=== PATIENT | female | born 1945 | race Caucasian/White ===

== ENCOUNTER 2018-09-26 09:38 | Outpatient (REF) | payer MEDICARE, BC, SELFPAY ==
[2018-09-26 13:18] LABS: HCT 43.2 % (36.0-46.0); HGB 14.4 g/dL (12.0-15.5); Mean Corp. HGB Concentration 33.3 g/dL (32.0-36.0); Mean Corpuscular Hemoglobin 31.2 pg (27.0-33.0); Mean Corpuscular Volume 93.5 fL (80-95); Mean Platelet Volume 9.2 fL (8.0-11.0); Platelet Count 293 x1000/uL (130-400); RBC 4.62 m/cumm (4.00-5.20); White Blood Cell Count 5.15 k/cumm (4.4-10.8)
[2018-09-26 13:33] LABS: ALT 28 U/L (12-78); AST 19 U/L (15-37); Albumin 4.3 g/dL (3.4-5.0); Alkaline Phosphatase 81 U/L (46-116); Anion Gap 13.3 mmol/L (3-11); BUN 21 mg/dL (7-18); Bilirubin, Total 0.9 mg/dL (0.2-1.0); CO2 26.7 mmol/L (21.0-32.0); CREATININE 0.88 mg/dL (0.55-1.02); Calcium 9.5 mg/dL (8.5-10.1); Chloride 103 mmol/L (98-107); Cholesterol 192 mg/dL (50-200); Glucose 99 mg/dL (70-100); HDL Cholesterol 74 mg/dL (40-60); LDL CHOLESTEROL 95 mg/dL (<100); Potassium 4.3 mmol/L (3.5-5.1); Sodium 143 mmol/L (136-145); Total Protein 7.5 g/dL (6.4-8.2); Triglyceride 109 mg/dL (30-150)
== END 2018-09-26 09:58 ==
LOC: NCHCN 09:38
PROVIDERS: PCP Nurse Practitioner Family; Visit Provider Nurse Practitioner Family
DX: E78.5 Hyperlipidemia, unspecified (principal)
CPT/HCPCS: 80053; 80061; 83721; 85027

== ENCOUNTER 2018-11-04 00:48 | Outpatient (CLI) | payer MEDICARE, BC, SELFPAY ==
--- NOTE | 2018-11-04 14:29 | DI.MAMMO_ITS ---
SYMPTOMS/DIAGNOSIS: SCREENING, Z12.31 MAMMOGRAM: Mammograms were interpreted according to the usual protocol including computer analysis with CAD system, tomosynthesis and C view imaging. The breasts are of moderate density with fairly symmetrical distribution of fibroglandular tissue. No dominant mass or clumped microcalcification is identified in either breast. Current examination is compared with the previous examinations including August 2017 and there has been no gross interval change in appearance in comparison with the previous studies. CONCLUSION: No specific evidence of malignancy at this time. Routine screening examinations are suggested at yearly intervals due to the family history of breast carcinoma. Category 1, breast density category B. MQSA ASSESSMENT OF FINDINGS: Negative. Category 1. Patient will receive a letter notifying them of these results. BI-RADS category B. There are scattered areas of fibroglandular density.
== END 2018-11-04 01:08 ==
PROVIDERS: PCP Nurse Practitioner Family; Visit Provider Nurse Practitioner Family
DX: Z12.31 Encounter for screening mammogram for malignant neoplasm of breast (principal); Z80.3 Family history of malignant neoplasm of breast
CPT/HCPCS: 77063; 77067

== ENCOUNTER 2019-10-28 16:36 | Outpatient (REF) | payer MEDICARE, BC, SELFPAY ==
[2019-10-28 19:33] LABS: Bilirubin Negative (Negative); Blood Moderate (Negative); Clarity Clear (Clear); Glucose Negative (Negative); Ketones Negative (Negative); Leukocyte Esterase Moderate (Negative); Nitrite Negative (Negative); Urobilinogen 0.2 EU/dL (Up TO 0.2)
[2019-10-28 20:18] LABS: Bacteria Moderate HPF (Negative); Casts Negative LPF (Negative); Crystals Negative HPF (Negative); Epithelial Cells Few HPF (Negative); Mucus Negative (Negative); Other Cells Few Renal (Negative); WBC 20-50 HPF (0-5)
[2019-10-28 20:19] LABS: C & S Indicated? C&S Done As Ordered
== END 2019-10-28 16:56 ==
LOC: NCHCN 16:36
PROVIDERS: PCP Nurse Practitioner Family; Visit Provider Family Medicine
DX: R39.9 Unspecified symptoms and signs involving the genitourinary system (principal)
CPT/HCPCS: 87077; 81003; 81015; 87086; 87186

== ENCOUNTER 2020-03-16 01:00 | Outpatient (CLI) | payer MEDICARE, BC, SELFPAY ==
--- NOTE | 2020-03-16 11:20 | DI.MAMMO_ITS ---
EXAM: MG MAMMO SCREENING CLINICAL HISTORY: SCREENING,Z12.39 TECHNIQUE: Bilateral full field digital CC and MLO mammographic images were obtained with 3D tomosyn thesis and utilizing computer aided detection (CAD). COMPARISON: Available for comparison. FINDINGS: Masses/Architectural Distortion: None seen. Microcalcifications: No suspicious pleomorphic-type are seen. Skin Thickening/Nipple Retraction: None. IMPRESSION: 1. No significant interval change with no specific features of malignancy noted. 2. Unless there is more urgent need, screening mammography is recommended, as per [employer] [employer] guidelines. BI-RADS Category 1 - Negative Breast Density - Category B - Scattered areas of fibroglandular density A negative radiographic report should not delay biopsy if a dominant or clinically suspicious mass is present. Up to ten percent of cancers are not identified on mammography. A negative report may reinforce clinical impression. Adenosis and dense breasts may obscure an underlying neoplasm. False positive reports average 6 to 10%. Patient will receive a letter notifying them of these results.
== END 2020-03-16 01:20 ==
PROVIDERS: PCP Nurse Practitioner Family; Visit Provider Nurse Practitioner Family
DX: Z12.31 Encounter for screening mammogram for malignant neoplasm of breast (principal)
CPT/HCPCS: 77063; 77067

== ENCOUNTER 2021-03-20 00:12 | Outpatient (CLI) | payer MEDICARE, BC, SELFPAY ==
--- NOTE | 2021-03-20 10:19 | DI.MAMMO_ITS ---
Exam(s) MAMMO SCREENING EXAM: MAMMO SCREENING CLINICAL HISTORY: SCREENING FOR BREAST CANCER Z12.39 TECHNIQUE: Mammograms were interpreted according to the usual protocol including computer analysis w [employer] CAD system, tomosynthesis and C-view imaging. COMPARISON: 2011 through 2019 FINDINGS: The breasts are composed of scattered fibroglandular densities, Breast Density category B. No suspicious masses or suspicious microcalcifications are seen. No skin thickening or abnormal axillary lymph nodes are seen. There has been no significant change from prior exams. IMPRESSION: BI-RADS Category 1, Negative mammogram Yearly screening mammography is recommended. Breast Density - Category B, scattered fibroglandular densities. A negative radiographic report should not delay biopsy if a dominant or clinically suspicious mass is present. Up to ten percent of cancers are not identified on mammography. A negative report may reinforce clinical impression. Adenosis and dense breasts may obscure an underlying neoplasm. False positive reports average 6 to 10%. Patient will receive a letter notifying them of these results.
== END 2021-03-20 00:32 ==
PROVIDERS: PCP Nurse Practitioner Family; Visit Provider Nurse Practitioner Family
DX: Z12.31 Encounter for screening mammogram for malignant neoplasm of breast (principal)
CPT/HCPCS: 77063; 77067

== ENCOUNTER → 2022-03-27 01:53 | Outpatient (CLI) | payer MEDICARE, BC, SELFPAY ==
--- NOTE | 2022-03-27 | DI.MAMMO_ITS ---
Exam(s) MAMMO SCREENING EXAM: MAMMO SCREENING CLINICAL HISTORY: SCREENING FOR BREAST CANCER Z12.39 TECHNIQUE: Bilateral full field digital CC and MLO mammographic images were obtained with 3D tomosyn thesis and utilizing computer aided detection (CAD). COMPARISON: Available for comparison. FINDINGS: Masses/Architectural Distortion: None seen. Microcalcifications: No suspicious pleomorphic-type are seen. Skin Thickening/Nipple Retraction: None. IMPRESSION: 1. No significant interval change with no specific features of malignancy noted. 2. Unless there is more urgent need, screening mammography is recommended, as per [place] [employer] guidelines. BI-RADS Category 1 - Negative Breast Density - Category B - Scattered areas of fibroglandular density Breast density category C or D implies that the patient has dense breast tissue. Dense breast tissue is very common and is not abnormal but dense breast tissue can make it harder to find cancer on a ma mmogram. Also, dense breast tissue may increase their breast cancer risk. This information about the result of the mammogram report was provided to the patient to raise their awareness. Use this report when you speak with the patient about their risks for breast cancer, which includes their family hist ory. At that time, you may recommend for more screening tests (Ultrasound or MRI) as they might be us eful based on their risk. A negative radiographic report should not delay biopsy if a dominant or clinically suspicious mass is present. Up to ten percent of cancers are not identified on mammography. A negative report may reinforce clinical impression. Adenosis and dense breasts may obscure an underlying neoplasm. False positive reports average 6 to 10%. Patient will receive a letter notifying them of these results.
== END ==
PROVIDERS: Visit Provider Nurse Practitioner Family
DX: Z12.31 Encounter for screening mammogram for malignant neoplasm of breast (principal)
CPT/HCPCS: 77063; 77067

== ENCOUNTER → 2023-05-23 01:44 | Outpatient (CLI) | payer MEDICARE, BC, SELFPAY ==
--- NOTE | 2023-05-23 | DI.MAMMO_ITS ---
Exam(s) MAMMO SCREENING EXAM: MAMMO SCREENING CLINICAL HISTORY: SCREENING,Z12.31 TECHNIQUE: Bilateral full field digital CC and MLO mammographic images were obtained with 3D tomosyn thesis and utilizing computer aided detection (CAD). COMPARISON: Available for comparison. FINDINGS: Masses/Architectural Distortion: None seen. Microcalcifications: No suspicious pleomorphic-type are seen. Skin Thickening/Nipple Retraction: None. IMPRESSION: 1. No significant interval change with no specific features of malignancy noted. 2. Unless there is more urgent need, screening mammography is recommended, as per [place] [employer] guidelines. BI-RADS Category 1 - Negative Breast Density - Category B - Scattered areas of fibroglandular density Breast density category C or D implies that the patient has dense breast tissue. Dense breast tissue is very common and is not abnormal but dense breast tissue can make it harder to find cancer on a ma mmogram. Also, dense breast tissue may increase their breast cancer risk. This information about the result of the mammogram report was provided to the patient to raise their awareness. Use this report when you speak with the patient about their risks for breast cancer, which includes their family hist ory. At that time, you may recommend for more screening tests (Ultrasound or MRI) as they might be us eful based on their risk. A negative radiographic report should not delay biopsy if a dominant or clinically suspicious mass is present. Up to ten percent of cancers are not identified on mammography. A negative report may reinforce clinical impression. Adenosis and dense breasts may obscure an underlying neoplasm. False positive reports average 6 to 10%. Patient will receive a letter notifying them of these results.
== END ==
PROVIDERS: PCP Nurse Practitioner Family; Visit Provider Nurse Practitioner Family
DX: Z12.31 Encounter for screening mammogram for malignant neoplasm of breast (principal)
CPT/HCPCS: 77063; 77067

== ENCOUNTER 2024-05-13 12:45 | Outpatient (CLI) | payer MEDICARE, BC, SELFPAY ==
--- NOTE | 2024-05-13 | DI.RAD_ITS ---
Exam(s) XR CHEST 2V PA LATERAL EXAM: XR CHEST 2V PA LATERAL CLINICAL HISTORY: R06.09 Dyspnea TECHNIQUE: 2D digital imaging was performed. Two views. COMPARISON: No exams were available for comparison FINDINGS: HEART: Normal size. Aorta: Not dilated. PULMONARY VASCULATURE: Normal. MEDIASTINUM: small hiatal hernia. LUNGS: Clear. PLEURAL SPACE: No pleural effusion or pneumothorax. BONE:Unremarkable for age. SOFT TISSUES: Unremarkable. IMPRESSION: No acute abnormality. DATA REPOSITORY: RADIATION DOSE DELIVERED:
--- OUTSIDE RECORDS SUMMARY | 2024-05-13 12:49 | XMS_ITS | Encounter Summary ---
Author Organization [facility] Address [facility] [address] Care Team Providers Care Adult Health Clinical Nurse Specialist Name Role Phone Sigrid Snyder APRN Primary Care Provider Encounter Details Date Type Department Care Team (Late st Contact Info) Description 06/11/2018 External Results Medical Records [facility] [place] [phone] Provider, Scanning Social History Tobacco Use Types Packs/Day Years Used Date Smoking Tobacco: Never Sex and Gender Information Value Date Recorded Sex Assigned at Not on file Gender Identity Not on file Sexual Orientation Not on file documented as of this encounter Plan of Treatment Not on file documented as of this encounter Procedures Procedure Name Priority Date/Time Associated Diagnosis Comments SURGICAL PATHOLOGY SCAN Routine 06/11/2018 documented in this encounter Results * Scan Doc: Surgical Pathology (06/11/2018) Historical Provider MD STEPHEN MGR SCAN EX T ORDR/RSLT documented in this encounter Visit Diagnoses Not on filedocumented in this encounter Care Teams Adult Health Clinical Nurse Specialist Relationship Specialty Start Date End Date Sigrid Snyder APRN PCP - General Family Medicine 10/25/17 11/26/18 documented as of this encounter
--- OUTSIDE RECORDS SUMMARY | 2024-05-13 12:49 | XMS_ITS | Encounter Summary ---
Author Organization [facility] Address [facility] [place] [address] Care Team Providers Care Shafting Cleaner Name Role Phone Unknown Primary Care Provider Unavailabl e Encounter Details Date Type Department Care Team (Late st Contact Info) Description 10/28/2019 External Results Medical Records [facility] [place] [address] Provider, Scanning Social History Tobacco Use Types [...] Associated Diagnosis Comments SURGICAL PATHOLOGY SCAN Routine 10/28/2019 documented in this encounter Results * Scan Doc: Surgical Pathology (10/28/2019) Historical Provider MD STEPHEN MGR SCAN EX T ORDR/RSLT documented in this encounter Visit Diagnoses Not on filedocumented in this encounter Care Teams Shafting Cleaner Relationship Specialty Start Date End Date Unknown None PCP - General 11/27/18 03/19/21 documented as of this encounter
--- OUTSIDE RECORDS SUMMARY | 2024-05-13 12:49 | XMS_ITS | Encounter Summary ---
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 Keyona Nielsen MD [address] [place] [id number] [facility] Dermatology [address] [place] [address] Referral ID Status Reason Start Date Expiration Date Visits Re quested Visits Authorized [id number] Closed 03/13/2021 03/13/2022 1 1 Encounter Details Date Type Department Care Team (Latest Contact Info) Description 03/20/2021 3:15 PM EST TH Visit (TeleHealth) Dermatology at [facility] [address] [place] [phone] Elliot Luz MD [facility] [address] [facility] [place] [address] 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 Excision discussion, referred by Dr. Jhaveri, Melanoma in-situ 2. 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 female. Established patient to me. Referred by Emilio Sin for consult and treat of aMIS and BCC as noted above. Pathology in chart. Patient has seen Dr. Jhaveri in the past, liked her, wanted to stay with her. Understood. I explained that this was an in-situ lesion, not deep, no need of node biopsy, thus didnot require surgical oncology. Hospital is trying to be more efficient with surgical time. She understood. BCC on opposite shoulder was treated at the time of the visit. I discussed this entire case with Dr. Nielsen. She is clear on our process and melanoma program, --- discussed the navigatorJyotsna with her as well. Medications: reviewed All: reviewed Review of Systems: Feels well, no fatigue, no weight loss, no other skin concerns --- overall healthy Current Outpatient Medications on File Prior to Visit Medication Sig Dispense Refill ??? atorvastatin (LIPITOR) 20 mg Tablet ??? omeprazole (PRILOSEC) 20 mg Capsule, Delayed Release(E.C.) ??? Uhkb-Alaw-CUE#1-Vit C-Sherwin-Bor [id number] mg Tablet Take by mouth. ??? aspirin 81 mg Tablet, Delayed Release (E.C.) Take 81 mg by mouth daily. No current facility-administered medications on file prior to visit. Examination: Per patient, no photos. Assessment/Diagnosis: 1. MIS of left shoulder 2. BCC of right shoulder, scar Treatment/Plan: Discussion - Spent over half of this visit discussing pathophysiology and the diagnosis, and counselling this patient on treatment options, expectations and follow-up plan. Specifically discussed: 1. Treatment options for both MIS and BCC as noted above - Patient verbally consents to this telephone visit and understands that this visit may be billed similar to a clinic office visit. - I provided care to the patient via telephone/video call today. Follow up: In surgery clinic with Dr. Luz March 31 I am documenting this encounter acting as the scribe for and in the presence of Sae Arguello LPN I performed the above scribed service and agree with the accuracy of the documentation in this encounter, MD Arsh Scott M.D. 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
--- OUTSIDE RECORDS SUMMARY | 2024-05-13 12:49 | XMS_ITS | Encounter Summary ---
Author Organization [facility] Address [facility] [place] [address] Care Team Providers Care Security Operations Analyst Name Role Phone Unknown Primary Care Provider Unavailabl e Encounter Details Date Type Department Care Team (Latest Contact Info) Description 10/03/2017 6:43 PM EDT - 10/03/2017 11:59 PM EDT Hospital Encounter Laboratory [facility] [place] [phone] Discharge Disposition: Home Social History Tobacco Use Types Packs/Day Years Used Date Smoking Tobacco: Never Assessed Sex and Gender Information Value Date Recorded Sex Assigned at Not on file Gender Identity Not on file Sexual Orientation Not on file documented as of this encounter Medications at Time of Discharge Medication Sig Dispensed Refills Start Date End Date omeprazole (PRILOSEC) 20 mg Capsule, Delayed Release(E.C.) 08/07/2017 documented as of this encounter Plan of Treatment Not on file documented as of this encounter Procedures Procedure Name Priority Date/Time Associated Diagnosis Comments SURGICAL PATHOLOGY REPORT Routine 10/03/2017 1:51 PM EDT documented in this encounter Results * Surgical Pathology Report (10/03/2017 1:51 PM EDT) Final Diagnosis [id number] ? Location: [facility] The signing pathologist has (i) examined the relevant preparation(s) for the specimen(s) and (ii) rendered or confirmed the diagnosis(es). . ?Surgical Pathology DIAGNOSIS Skin, right anterior thigh, shave ?? biopsy: ?? Malignant melanoma (see template and discussion) Specimen ? Procedure: ??Biopsy, shave Tumor ? Tumor Site: ??Skin of lower limb and hip - right anterior thigh ? Histologic Type: ?? Superficial spreading melanoma ? Maximum Tumor (Breslow) Thickness: ?0.4 Millimeters (mm) ? Tumor Extent ?Anatomic (Britton) Level: ?? II (melanoma present in but does not fill and ? expand papillary dermis) ?Ulceration: ??Not identified ? Accessory Findings ?Mitotic Rate: ?? None identified ?Lymphovascular Invasion: ?? Not identified ?Neurotropism: ?? Not identified ?Tumor Regression: ?? Not identified ? Margins ?Peripheral Margins: ?? Uninvolved by invasive melanoma ? Status of Melanoma In Situ Involvement at Peripheral Margins: ? Involved ?by melanoma in situ ?Deep Margin: ??Uninvolved by invasive melanoma ? Pathologic Stage Classification (pTNM, AJCC 8th Edition) ?Primary Tumor (pT): ?? pT1a Tumor Block(s): ?? A1 2016 AJCC 8th Edition CAP Annual Release Electronically signed by: ??Jordi KAN, PhD, Kenneth Verified: ??10/08/2017 ?Dermatopathologist Performed at: ??-[facility] Dept. of Pathology, [place], [place] DISCUSSION The biopsy shows predominantly ?? melanoma in situ, with focal invasion to the depth of 0.4 mm. As this is a smaller biopsy of a reported larger lesion, correlation with the excision specimen is recommended for final staging. This case was also reviewed by an additional intradepartmental dermatopathologist for consensus diagnosis. ADDITIONAL STUDIES Immunohistochemistry Studies: Formalin-fixed, paraffin-embedded tissue sections are studied using the polymer technique with appropriate positive and negative controls. ?These IHC studies provide the pathologist with adjunctive diagnostic information. Antibody specificity has been verified by testing antibodies on a series of in-house tissues with known immunohistochemical performance characteristics. The clinical interpretation of any antibody positive staining or its absence is evaluated within the context of clinical presentation, morphology, histopathological criteria and other diagnostic tests. . ADDITIONAL STUDIES Block ? Antibody ? Result (Positive/Negative) A1 ? Melan-A AEC ?Highlights melanocytes CLINICAL INFORMATION Specimen Submitted: A - Skin, R anterior thigh Clinical History and Diagnosis: 1.6 cm pigmented macule/MIS? Referring Identifier: ?? (not provided) SPECIMEN PROCESSING A - Labeled/Fixative: R thigh, formalin. Quantity/Size: Single, 0.9 x 0.5 x 0.1 cm. Tissue Description: Shave of mottled skin. Sections/Processing: Inked and quadrasected. (T1) ??atilio 10/08/2017 4:58 PM EDT [facility] SPECIMEN FROM SKIN / Unknown 10/03/2017 1:51 PM EDT 10/03/2017 1:51 PM EDT Keyona Nielsen MD PATHOLOGY/CYTOLOGY O [facility] [place] [address] documented in this encounter Visit Diagnoses Not on filedocumented in this encounter Care Teams Security Operations Analyst Relationship Specialty Start Date End Date Unknown None PCP - General 03/21/10 10/24/17 documented as of this encounter
--- OUTSIDE RECORDS SUMMARY | 2024-05-13 12:49 | XMS_ITS | Encounter Summary ---
Author Organization [facility] Address [facility] [place] [address] Care Team Providers Care Honey Processor Name Role Phone Unknown Primary Care Provider Unavailabl e Encounter Details Date Type Department Care Team (Latest Contact Info) Description 02/16/2021 9:01 PM EDT - 02/16/2021 11:59 PM EDT [place] [address] Discharge Disposition: Home Social History Tobacco Use Types Packs/Day Years Used Date Smoking Tobacco: Never Sex and Gender Information Value Date Recorded Sex Assigned at Not on file Gender Identity Not on file Sexual Orientation Not on file documented as of this encounter Medications at Time of Discharge Medication Sig Dispensed Refills Start Date End Date atorvastatin (LIPITOR) 20 mg Tablet 10/18/2017 omeprazole (PRILOSEC) 20 mg Capsule, Delayed Release(E.C.) 08/07/2017 Nivs-Vtjw-QZM#1-Vit C-Sherwin-Bor [id number] mg Tablet Take by mouth. aspirin 81 mg Tablet, Delayed Release (E.C.) Take 81 mg by mouth daily. documented as of this encounter Plan of Treatment Not on file documented as of this encounter Procedures Procedure Name Priority Date/Time Associated Diagnosis Comments SURGICAL PATHOLOGY REPORT Routine 02/16/2021 9:40 AM EDT documented in this encounter Results * Surgical Pathology Report (02/16/2021 9:40 AM EDT) Final Diagnosis [id number] ? Location: [facility] The signing pathologist has (i) examined the relevant preparation(s) for the specimen(s) and (ii) rendered or confirmed the diagnosis(es). . ?Surgical Pathology DIAGNOSIS A - Left anterior shoulder, skin shave biopsy: - ??Melanoma in situ, present at the peripheral specimen edge (see Discussion) B - Right anterior shoulder, shave biopsy: - ??Basal cell carcinoma, nodular pattern, transected at the base Electronically signed by: ?Jordi KAN, PhD, [facility] Verified: ??02/22/2021 9:24 ?? Dermatopathologist Performed at: ??-[facility] Dept. of Pathology, [place], [place] ADDITIONAL STUDIES A(Left anterior shoulder) - As this is a partial biopsy of a reported larger lesion, correlation with the excision specimen is necessary for final staging. SPECIMEN(S) SUBMITTED A - left anterior shoulder, shave B - right anterior shoulder, shave Referring Identifier: ?(not provided) CLINICAL INFORMATION A - 2.5 cm pigmented macule B - 3 mm pearly nodule SPECIMEN PROCESSING A - Labeled/Fixative: Left anterior shoulder, formalin. Quantity/Size: ??Single, 0.8 x 0.5 x 0.1 cm. Tissue Description: Rodrigues and brown scaly irregularly pigmented skin shave. Sections/Processing: Inked, trisected and entirely submitted in 1 cassette labeled A1. B - Labeled/Fixative: Right anterior shoulder, formalin. Quantity/Size: ??Single, 0.5 x 0.5 x 0.1 cm. Tissue Description: Rodrigues-white scaly papule. Sections/Processing: Inked, bisected and entirely submitted in 1 cassette labeled B1. ??MLL 02/22/2021 9:24 AM EDT [facility] SPECIMEN FROM SKIN / Unknown 02/16/2021 9:40 AM EDT 02/16/2021 9:40 AM EDT SPECIMEN FROM SKIN / Unknown 02/16/2021 9:40 AM EDT 02/16/2021 9:40 AM EDT Keyona Nielsen MD PATHOLOGY/CYTOLOGY O RDERABLES Performing Organization Address City/State/[facility] [place] [address] documented in this encounter Visit Diagnoses Not on filedocumented in this encounter Care Teams Honey Processor Relationship Specialty Start Date End Date Unknown None PCP - General 11/27/18 03/19/21 documented as of this encounter
--- OUTSIDE RECORDS SUMMARY | 2024-05-13 12:49 | XMS_ITS | Encounter Summary ---
Author Organization [facility] Address [facility] [place] [address] Care Team Providers Care Lead Driver Name Role Phone Unknown Primary Care Provider Unavailabl e Encounter Details Date Type Department Care Team (Latest Contact Info) Description 10/27/2019 8:10 PM EDT - 10/27/2019 11:59 PM EDT Hospital [place] [phone] Discharge Disposition: Home Social History Tobacco Use [...] (PRILOSEC) 20 mg Capsule, Delayed Release(E.C.) 08/07/2017 Dydj-Tgmt-TMZ#1-Vit C-Sherwin-Bor 712-359-91-0.5 mg Tablet Take by mouth. aspirin 81 mg Tablet, Delayed Release (E.C.) Take 81 mg by mouth daily. documented as of this encounter Plan of Treatment Not on file documented as of this encounter Procedures Procedure Name Priority Date/Time Associated Diagnosis Comments SURGICAL PATHOLOGY REPORT Routine 10/27/2019 11:25 AM EDT documented in this encounter Results * Surgical Pathology Report (10/27/2019 11:25 AM EDT) Final Diagnosis [id number] ? Location: OPW The signing pathologist has (i) examined the relevant preparation(s) for the specimen(s) and (ii) rendered or confirmed the diagnosis(es). . ?Surgical Pathology DIAGNOSIS Left upper back, skin shave biopsy: - Lentigo and pigmented actinic keratosis with post-inflammatory changes ? (see discussion) Electronically signed by: ??Reji Mcbride MD Verified: ??11/05/2019 ?Dermatopathologist Performed at: ??-[facility] [place] [place] Dept. of Pathology, [place], [place] DISCUSSION No discrete melanocytic proliferation is identified. Squamous dysplasia (actinic keratosis) focally approaches full epidermal thickness, but only at the very center of the specimen and not around the specimen edges. ADDITIONAL STUDIES Multiple step-leveled sections are reviewed. MelanA immunohistochemistry highlights the melanocytic proliferation and assists in margination. SPECIMEN(S) SUBMITTED A - L upper back, shave (1) Referring Identifier: ?? (not provided) CLINICAL INFORMATION 3 mm irregularly pigmented macule SPECIMEN PROCESSING A - Labeled/Fixative: Left upper back, formalin. Quantity/Size: ??Single, 0.7 x 0.6 cm. Tissue Description: Rodrigues-pink skin shave notable for a 0.4 x 0.3 cm irregularly pigmented macule. Sections/Processing: Inked, trisected and entirely submitted in 2 cassettes as follows: ?A1: ??Tips ?A2: ??Body ??ajw NOTE: Per histology, tips embedded in A1 and A3; body in A2. 11/05/2019 7:47 AM EDT [facility] SPECIMEN FROM SKIN / Unknown 10/27/2019 11:25 AM EDT 10/27/2019 11:25 AM EDT Keyona Nielsen MD PATHOLOGY/CYTOLOGY O RDERAARVIND [facility] [place] [address] documented in this encounter Visit Diagnoses Not on filedocumented in this encounter Care Teams Lead Driver Relationship Specialty Start Date End Date Unknown None PCP - General 11/27/18 03/19/21 documented as of this encounter
--- OUTSIDE RECORDS SUMMARY | 2024-05-13 12:49 | XMS_ITS | Encounter Summary ---
Author Organization [facility] Address [facility] [place] [address] Care Team Providers Care Cold Roller Name Role Phone Sigrid Snyder APRN Primary Care Provider [phone] Reason for Visit * Consultation (Routine) - Closed Specialty Diagnoses / Procedures Referred By Weston holguin Referred To Contact General Surgery Diagnoses Malignant melanoma of thigh, right Malig Melanoma RT antrior thigh Procedures Consult & Treat Keyona Nielsen MD [address] [place] [address] [facility] Surgery [address] [place] [address] Referral ID Status Reason Start Date Expiration Date Visits Re quested Visits Authorized [id number] Closed 10/15/2017 10/15/2018 1 1 Encounter Details Date Type Department Care Team ([facility] st Contact Info) Description 10/25/2017 10:30 AM EDT Office [place] [phone] Norma Jhaveri MD Melanoma of lower limb, right Social History Tobacco Use Types Packs/Day Years Used Date Smoking Tobacco: Never Sex and Gender Information Value Date Recorded Sex Assigned at Not on file Gender Identity Not on file Sexual Orientation Not on file documented as of this encounter Last Filed Vital Signs Vital Sign Reading Time Taken Comments Blood Pressure 161/82 10/25/2017 10:21 AM EDT Pulse 79 10/25/2017 10:21 AM EDT Temperature - - Respiratory Rate - - Oxygen Saturation 98% 10/25/2017 10:21 AM EDT Inhaled Oxygen Concentration - - Weight 83.5 kg (184 lb) 10/25/2017 10:21 AM EDT Height 162.6 cm (5' 4) 10/25/2017 10:21 AM EDT Body Mass Index 31.58 10/25/2017 10:21 AM EDT documented in this encounter Progress Notes * Norma Jhaveri MD - 10/25/2017 10:30 AM EDT SURGICAL ONCOLOGY NEW PATIENT NOTE Cc: New diagnosis of melanoma Dori Healy is a 71 year old woman referred for definitive management of a new diagnosis of melanoma. She indicates that she has had atypical nevus of the right anterior thigh for several years now. Her reported thinking that the lesion changed in character. She was seeing Dr. Nielsen for routine evaluation and a biopsy was performed. This was described as a 1.6 cm irregularly shaped and irregularly pigmented macule of the right anterior thigh. A partial shave biopsy was performed in the office. Concomitantly, cryosurgery was performed for 5 separate actinic keratoses lesions. Notation is that a full body skin examination was done and otherwise unremarkable. Pathology demonstrated: DIAGNOSIS Skin, right anterior thigh, shave ?? biopsy: ?Malignant melanoma (see template and discussion) Specimen ?Procedure: ??Biopsy, shave Tumor ?Tumor Site: ??Skin of lower limb and hip - right anterior thigh ?Histologic Type: ?? Superficial spreading melanoma ?Maximum Tumor (Breslow) Thickness: ?0.4 Millimeters (mm) ?Tumor Extent ? Anatomic (Britton) Level: ?? II (melanoma present in but does not fill and ?expand papillary dermis) ? Ulceration: ??Not identified ?Accessory Findings ? Mitotic Rate: ?? None identified ? Lymphovascular Invasion: ?? Not identified ? Neurotropism: ?? Not identified ? Tumor Regression: ?? Not identified ?Margins ? Peripheral Margins: ?? Uninvolved by invasive melanoma ?Status of Melanoma In Situ Involvement at Peripheral Margins: ? Involved ? by melanoma in situ ? Deep Margin: ??Uninvolved by invasive melanoma ?Pathologic Stage Classification (pTNM, AJCC 8th Edition) ? Primary Tumor (pT): ?? pT1a As result of these findings, the patient is referred for definitive surgical management. 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 Review of systems. No current constitutional/systemic symptoms. No fevers, chills. No headaches. Nobony aches, changes in bowel habits, weight change. Never smoker. Medications include Lipitor and Prilosec. No anticoagulation. She has a possible allergy to codeine Examination. Afebrile. BMI 31.6. Sclera clear, anicteric Chest clear to auscultation Healing shave biopsy site along the right anterior thigh. There is an unsampled pigmented nevus around the site of the lesion. No obvious gross residual disease. No right inguinal or popliteal adenopathy. No right lower extremity lymphedema, mild edema. Pathology reviewed as above. No other labs for review today. Impression. 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 There is notation of melanoma in situ atthe peripheral margin, likely involving the adjacent unsampled pigmented nevus. I made recommendations for wide excision to clear the lesion. Given the current melanoma profile, there is no indication for sentinel lymph node biopsy. This could change if she was discovered to have residual disease that represented a thicker melanoma and we described this for her. There is no indication for staging workup (imaging). Risks of the procedure were reviewed, including, but not limited to, bleeding, infection, inabilityto completely resect disease, recurrence in spite of resection, need for additional procedures, lymphocele/seroma/hematoma, lymphedema, wound dehiscence, and other complications related to anesthesiaor being in the hospital. Questions were answered. Informed consent was obtained and placed in the chart. We will schedule the procedure. Given the nature of the operation we discussed a local anesthetic which she would like to consider. documented in this encounter Plan of Treatment Not on file documented as of this encounter Visit Diagnoses Diagnosis Melanoma of lower limb, right documented in this encounter Care Teams Cold Roller Relationship Specialty Start Date End Date Sigrid Snyder APRN PCP - General Family Medicine 10/25/17 11/26/18 documented as of this encounter
--- OUTSIDE RECORDS SUMMARY | 2024-05-13 12:49 | XMS_ITS | Encounter Summary ---
Author Organization [facility] Address [facility] [place] [address] Care Team Providers Care Rib Matcher And Fitter Name Role Phone Unknown Primary Care Provider Unavailabl e Encounter Details Date Type Department Care Team (Latest Contact Info) Description 06/11/2011 3:19 PM EST - 06/11/2011 11:59 PM EST [place] [address] Keyona Lindsey MD [address] [place] [id number] Discharge Disposition: Home Social History Tobacco Use [...] Associated Diagnosis Comments SURGICAL PATHOLOGY REPORT Routine 06/11/2011 3:28 PM EST documented in this encounter Results * SURGICAL PATHOLOGY REPORT (06/11/2011 3:28 PM EST) Surgical Pathology Report ? [facility] ? Provider: ?? KEYONA LINDSEY ?Pt. Name: ?? ROBIN YOUNG ? Acc #: ?[id number] ? Pt. ? Col Date: ?? 06/11/2011 ? /Sex: ?1945,(65 years),Female ? Rec Date: ?? 06/12/2011 ? LOC: ?[facility] ? SURGICAL PATHOLOGY ? ---Pathologic Diagnosis--- ? Skin, right upper arm, shave biopsy: ? 1. Solar lentigo with melanocytic atypia, involving peripheral biopsy ?edges, (see Comment). ? 2. Actinic keratosis. ? CR-0 ? 06/12/11 ? AJE ? 06/20/11 Verified by: ? Marily Quezada MD ? Dermatopathologist ? (Electronic Signature) ? The attending pathologist whose signature appears on this report has ? reviewed all diagnostic slides and has edited the gross and/or ? microscopic portion of the report in rendering the final pathologic ? diagnosis. ? ---Comment--- ? Multiple additional sections were examined, and there are variable findings ? across the biopsy. ??The predominant lesions are solar lentigo and actinic ? keratosis. ??Within the epidermis, particularly in the solar lentigo, there ? are increased numbers of junctional melanocytes, some of which are enlarged ? and have cytologic atypia, but do not form confluent growth, and are not ? diagnostic of melanoma in situ. ??The significance is uncertain. ??There can ? be increased melanocytes with atypia in the setting of actinically damaged ? skin. ??Clinical correlation and follow-up are recommended with additional ? sampling if clinically indicated. ? Drs. Luis Lyons, Randolph Sanchez and Kenneth Bacon also examined the case ? and concur with the interpretation. ? ---Microscopic Description--- ? Slides reviewed, microscopic description not recorded. ? Immunohistochemistry Studies: ? Formalin-fixed, paraffin-embedded tissue sections are studied using the B- ? SA system technique with appropriate positive and negative controls. ??These ? IHC studies provide the pathologist with adjunctive diagnostic information. ? Antibody specificity has been verified by testing antibodies on a series of ? in-house tissues with known immunohistochemical performance ? characteristics. The ? [facility] ? Provider: ?? KEYONA LINDSEY ?Pt. Name: ?? ROBIN YOUNG ? Acc #: ?[id number] ? Pt. ? Col Date: ?? 06/11/2011 ? /Sex: ?1945,(65 years),Female ? Rec Date: ?? 06/12/2011 ? LOC: ?[facility]W ? SURGICAL PATHOLOGY ? clinical interpretation of any antibody positive staining or its absence is ? evaluated within the context of clinical presentation, morphology, ? histopathological criteria and other diagnostic tests. ? Block ?Antibody ?Result (Positive/Negative) ? A1 ?MART-1 ? positive, increased junctional melanocytes. ? ---Gross Description--- ? Labeled/Fixative: ? R upper arm, formalin. ? Qty/Size/Weight: ?Single shave, 1.2 x 1.1 x 0.1 cm. ? Tissue Description: ?? White skin with a 1.1-cm, dark brown macule. ? Sections/Processing: ??The specimen is quadrisected. ??(T1) aje/SNS ? ---Clinical Information--- ? Specimen Submitted: ? A - R upper arm, shave ? Clinical History/Diagnosis: ? 1-cm irregular, dark brown macule / lentigo R/O MM ? Keyona Lindsey MD ? Dermatology ? [address] , [address] ? [place], [place] ??[address] ? Phone - ? FAX - ALEXSANDER RODRIGUEZIUM 06/11/2011 3:28 PM EST Keyona Lindsey MD PATHOLOGY/CYTOLOGY O RDERABLES ALEXSANDER REBOLLARENNIUM documented in this encounter Visit Diagnoses Not on filedocumented in this encounter Care Teams Rib Matcher And Fitter Relationship Specialty Start Date End Date Unknown None PCP - General 03/21/10 10/24/17 documented as of this encounter
--- OUTSIDE RECORDS SUMMARY | 2024-05-13 12:49 | XMS_ITS | Clinical Summary ---
Author Organization [facility] Address [facility] [place] [address] Care Team Providers Care Clinical Genetics Laboratory Chief Name Role Phone Kristen Castaneda CORINNE Primary Care Provider [phone] Allergies Active Allergy Reactions Criticality Noted Date Comments Codeine Nausea And Vomiting 10/25/2017 Medications Medication Sig Dispensed Refills Start Date End Date Status atorvastatin (LIPITOR) 20 mg Tablet 10/18/2017 Active omeprazole (PRILOSEC) 20 mg Capsule, Delayed Release(E.C.) 08/07/2017 Active Svrm-Zkwa-IDM#1-Vit C-Sherwin-Bor [id number] mg Tablet Take by mouth. Active aspirin 81 mg Tablet, Delayed Release (E.C.) Take 81 mg by mouth daily. Active Social History Tobacco Use Types Packs/Day Years Used Date Smoking Tobacco: Never Sex and Gender Information Value Date Recorded Sex Assigned at Not on file Gender Identity Not on file Sexual Orientation Not on file Last Filed Vital Signs Vital Sign Reading Time Taken Comments Blood Pressure 126/64 11/08/2017 2:29 PM EDT Pulse 79 10/25/2017 10:21 AM EDT Temperature - - Respiratory Rate 16 11/08/2017 2:29 PM EDT Oxygen Saturation 96% 11/08/2017 2:29 PM EDT Inhaled Oxygen Concentration - - Weight 83.5 kg (184 lb) 10/25/2017 10:21 AM EDT Height 162.6 cm (5' 4) 10/25/2017 10:21 AM EDT Body Mass Index 31.58 10/25/2017 10:21 AM EDT Plan of Treatment Health Maintenance Due Date Last Done Comments Hepatitis C Screening 1963 Tetanus/Diphtheria/Pertussis Vaccines (1 - Tdap) 11/09 Pneumoccocal Vaccine: 50+ (1 of 1 - PCV) 1996 Zoster vaccine (1 of 2) 1996 Advance Directive 2001 Bone Density Scan 11/10/2011 RSV Vaccine (1 - 1-dose 75+ series) 2021 Covid-19 Vaccine (1 - 2023- season) 2023 Influenza (Flu) vaccine (1 o f 1 - Influenza standard series) 12/29/2023 Care Teams Clinical Genetics Laboratory Chief Relationship Specialty Start Date End Date Kristen Castaneda APRN [facility] [address] [place], [place] [address] PCP - General Family Medicine 03/31/21
--- OUTSIDE RECORDS SUMMARY | 2024-05-13 12:49 | XMS_ITS | Encounter Summary ---
Author Organization [facility] Address [address] [place] [address] Care Team Providers Care Corrosion Control Engineer Name Role Phone Unavailable Primary Care Provider Unavailabl e Encounter Details Date Type Department Care Team (Late st Contact Info) Description 07/03/1999 Results Only [facility] [address] [place] [address] MD [address] [place] [phone] Social History Tobacco Use Types Packs/Day Years Used Date Smoking Tobacco: Never Assessed Comments Unknown Sex and Gender Information Value Date Recorded Sex Assigned at Not on file Legal Sex Female 18:23 EST Gender Identity Not on file Sexual Orientation Not on file documented as of this encounter Plan of Treatment Not on file documented as of this encounter Procedures Procedure Name Priority Date/Time Associated Diagnosis Comments CYTOPATHOLOGY Routine 07/03/1999 15:52 EST CYTOPATHOLOGY Routine 07/03/1999 7:29 EST documented in this encounter Results * CYTOPATHOLOGY (07/03/1999 15:52 EST) Pathology Report: CYTOPATHOLOGY REPORT Reports generated via electronic interface contain original data; however they are lacking the format of the original report. Caution should be taken when reading/interpreti ng unformatted reports. Name: ? ROBIN YOUNG ? Accession #: ? [id number] : ? 1945 (Age: 53) ??F ?Collect Date: ? 07/03/1999 Location: ?Receive Date: ? 07/03/1999 Provider: ? ANTONIO LANE MD Copy to: ?ANTONIO LANE MD ? CYTOLOGIC DIAGNOSIS: CYTOLOGIC DIAGNOSIS ? Urinary tract cytologic material, voided: ? No malignant cells identified. ??See comment. ? SmartSynch Archived Tests - Final Diagnosis Text Field: Clinical History : ;UTI, hematuria. Gross Description : 1 tube of Cytolyt, received. ? COMMENT: COMMENT ? Reactive urothelial cells are present in a background of marked ? acute inflammation, consistent with urinary tract infection. Document reviewed and electronically signed by: ? Conversion for IZZY BYERS Report Date: ??07/05/1999 00:00 By the signature above, the attending physician certifies that he/she has personally conducted a gross and/or microscopic examination of the described specimens and rendered or confirmed the above diagnosis. Specimen Type: ? Urinary Tract Cytologic Material, Voided Clinical History: ? Gross Description: ? End of Report PETTY VELASQUEZ 07/03/1999 15:5 2 EST 07/03/1999 15:[address] MD PATHOLOGY ORDERABLES Final Resul t PETTY BYRNE [facility] [address] [place] [address] * CYTOPATHOLOGY (07/03/1999 7:29 EST) Pathology Report: CYTOPATHOLOGY REPORT Reports generated via electronic interface contain original data; however they are lacking the format of the original report. Caution should be taken when reading/interpreti ng unformatted reports. Name: ? HANNAH ROBIN ? Accession #: ? [id number] : ? 1945 (Age: 53) ??F ?Collect Date: ? 07/03/1999 Location: ?Receive Date: ? 07/03/1999 Provider: ? ANTONIO LANE MD Copy to: ?ANTONIO LANE MD ? CYTOLOGIC DIAGNOSIS: CYTOLOGIC DIAGNOSIS ? Urinary tract cytologic material, voided: ? No malignant cells identified; acute inflammation. ? SmartSynch Archived Tests - Final Diagnosis Text Field: Clinical History : ;UTI. ??Hematuria Gross Description : 1 tube of Cytolyt Document reviewed and electronically signed by: ? Conversion for THERESA HERNANDEZ Report Date: ??07/03/1999 00:00 By the signature above, the attending physician certifies that he/she has personally conducted a gross and/or microscopic examination of the described specimens and rendered or confirmed the above diagnosis. Specimen Type: ? Urinary Tract Cytologic Material, Voided Clinical History: ? Gross Description: ? End of Report PETTY VELASQUEZ 07/03/1999 7:29 EST 07/03/1999 7:[address] MD PATHOLOGY ORDERABLES Final Resul t PETTY VELASQUEZ [address] [place] [address] documented in this encounter Visit Diagnoses Not on filedocumented in this encounter
--- OUTSIDE RECORDS SUMMARY | 2024-05-13 12:49 | XMS_ITS | Encounter Summary ---
Author Organization [facility] Address [facility] [place] [address] Care Team Providers Care Instructional Developer Name Role Phone Unknown Primary Care Provider Unavailabl e Encounter Details Date Type Department Care Team (Late st Contact Info) Description 06/25/2019 External Results Medical Records [facility] [place] [address] Provider, Scanning Social History Tobacco Use Types [...] Associated Diagnosis Comments SURGICAL PATHOLOGY SCAN Routine 06/25/2019 documented in this encounter Results * Scan Doc: Surgical Pathology (06/25/2019) Historical Provider MD STEPHEN MGR SCAN EX T ORDR/RSLT documented in this encounter Visit Diagnoses Not on filedocumented in this encounter Care Teams Instructional Developer Relationship Specialty Start Date End Date Unknown None PCP - General 11/27/18 03/19/21 documented as of this encounter
--- OUTSIDE RECORDS SUMMARY | 2024-05-13 12:49 | XMS_ITS | Encounter Summary ---
Author Organization [facility] Address [facility] [place] [address] Care Team Providers Care Director Call Center Sales Name Role Phone Claudio Sigrid Guevara APRN Primary Care Provider Encounter Details Date Type Department Care Team (Latest Contact Info) Description 06/10/2018 7:57 PM EST - 06/10/2018 11:59 PM EST [place] [address] Discharge Disposition: Home Social History Tobacco Use [...] (PRILOSEC) 20 mg Capsule, Delayed Release(E.C.) 08/07/2017 Fdsi-Xllp-DJK#1-Vit C-Sherwin-Bor [id number] mg Tablet Take by mouth. aspirin 81 mg Tablet, Delayed Release (E.C.) Take 81 mg by mouth daily. documented as of this encounter Plan of Treatment Not on file documented as of this encounter Procedures Procedure Name Priority Date/Time Associated Diagnosis Comments SURGICAL PATHOLOGY REPORT Routine 06/10/2018 12:45 PM EST documented in this encounter Results * Surgical Pathology Report (06/10/2018 12:45 PM EST) Final Diagnosis [id number] ? Location: OPW The signing pathologist has (i) examined the relevant preparation(s) for the specimen(s) and (ii) rendered or confirmed the diagnosis(es). . ?Surgical Pathology DIAGNOSIS A. Skin, right nose shaft, shave ?? biopsy: - ??Basal cell carcinoma, transected at the base B. Skin, left anterior shoulder, shave ?? biopsy: - Features of ??lentigo/actinic keratosis with focal increase in junctional melanocytes (see discussion) Electronically signed by: ??Emily Miles MD Verified: ??06/15/2018 ?Dermatopathologist Performed at: ??-[facility] [place], [place], [place] DISCUSSION B. ??Left anterior shoulder: There is focal increase in junctional melanocytes with most of the melanocyte density noted at the peripheral specimen edge. Clinical concern regarding melanoma in situ is noted. Although the findings in this sample are not diagnostic of melanoma in situ, as this is small portion of a reported larger lesion, additional sampling may be warranted as clinically indicated. ADDITIONAL STUDIES A, B. ??Multiple step-leveled sections were reviewed. Immunohistochemistry Studies: Formalin-fixed, paraffin-embedded tissue sections are [...] morphology, histopathological criteria and other diagnostic tests. Block ? Antibody ?Result (Positive/Negative) B ?Melan-A ?Positive in junctional melanocytes This case was also reviewed by an additional intradepartmental dermatopathologist for consensus diagnosis. CLINICAL INFORMATION Specimen Submitted: A - Skin, R nose shaft, shave (1) B - Skin, L anterior shoulder, shave (1) Clinical History and Diagnosis: A - 6 mm pearly papule; BCC B - 1.6 cm irregularly pigmented macule; rule out MIS Referring Identifier: ?(not provided) SPECIMEN PROCESSING A - Labeled/Fixative: Right nose shaft, formalin. Quantity/Size: ??Single, 0.4 x 0.3 x 0.1 cm. Tissue Description: Shave of pasty white to wright-yellow and crusted skin. Sections/Processing: . SPECIMEN PROCESSING Bisected and entirely submitted in 1 cassette labeled A1. B - Labeled/Fixative: Left anterior shoulder, formalin. Quantity/Size: ??Single, 0.5 x 0.3 x 0.1 cm. Tissue Description: Shave of light brown to patchy, dark brown skin. Sections/Processing: Inked, bisected and entirely submitted in 1 cassette labeled B1. ??apb 06/15/2018 7:54 PM EST [facility] SPECIMEN FROM SKIN / Unknown 06/10/2018 12:45 PM EST 06/10/2018 12:45 PM EST SPECIMEN FROM SKIN / Unknown 06/10/2018 12:45 PM EST 06/10/2018 12:45 PM EST Keyona Nielsen MD PATHOLOGY/CYTOLOGY O [facility] [place] [id number] documented in this encounter Visit Diagnoses Not on filedocumented in this encounter Care Teams Director Call Center Sales Relationship Specialty Start Date End Date Sigrid Snyder APRN PCP - General Family Medicine 10/25/17 11/26/18 documented as of this encounter
--- OUTSIDE RECORDS SUMMARY | 2024-05-13 12:49 | XMS_ITS | Encounter Summary ---
Author Organization [facility] Address [facility] [place] [address] Care Team Providers Care Bridge Construction Inspector Name Role Phone Unknown Primary Care Provider Unavailabl e Encounter Details Date Type Department Care Team (Latest Contact Info) Description 06/16/2020 8:14 PM EST - 06/16/2020 11:59 PM EST Hospital [place] [address] Discharge Disposition: Home Social History Tobacco Use [...] (PRILOSEC) 20 mg Capsule, Delayed Release(E.C.) 08/07/2017 Ekdq-Iueo-YSF#1-Vit C-Sherwin-Bor [id number] mg Tablet Take by mouth. aspirin 81 mg Tablet, Delayed Release (E.C.) Take 81 mg by mouth daily. documented as of this encounter Plan of Treatment Not on file documented as of this encounter Procedures Procedure Name Priority Date/Time Associated Diagnosis Comments SURGICAL PATHOLOGY REPORT Routine 06/16/2020 12:00 PM EST documented in this encounter Results * Surgical Pathology Report (06/16/2020 12:00 PM EST) Final Diagnosis [id number] ? Location: OPW The signing pathologist has (i) examined the relevant preparation(s) for the specimen(s) and (ii) rendered or confirmed the diagnosis(es). . ?Surgical Pathology DIAGNOSIS Left faith, skin shave: - ??Basal cell carcinoma, micronodular and nodular patterns, ?? present at the peripheral and deep specimen edges Electronically signed by: ??Jordi KAN, PhD, Kenneth Verified: ??06/21/2020 ?Dermatopatholo gist Performed at: ??-[facility] [place] Dept. of [place]ology, [place], [place] SPECIMEN(S) SUBMITTED A - L faith, Shave (1) CLINICAL INFORMATION 6 mm pink plaque; BCC SPECIMEN PROCESSING A - Labeled/Fixative : Left faith, formalin. Quantity/Size: ??Single, 0.7 x 0.6 x 0.1 cm. Tissue Description: [place] plaque. Sections/Process ing: Inked, trisected and entirely submitted in 1 cassette labeled A1. ??MLL 06/21/2020 10:15 AM EST [facility] SPECIMEN FROM SKIN / Unknown 06/16/2020 12:00 PM EST 06/16/2020 12:00 PM EST Keyona Nielsen MD PATHOLOGY/CYTOLOGY O [facility] [place] [address] documented in this encounter Visit Diagnoses Not on filedocumented in this encounter Care Teams Bridge Construction Inspector Relationship Specialty Start Date End Date Unknown None PCP - General 11/27/18 03/19/21 documented as of this encounter
--- OUTSIDE RECORDS SUMMARY | 2024-05-13 12:49 | XMS_ITS | Encounter Summary ---
Author Organization [facility] Address [address] [place] [address] Care Team Providers Care Assembler Liquid Center Name Role Phone Unavailable Primary Care Provider Unavailabl e Encounter Details Date Type Department Care Team (Late st Contact Info) Description 09/08/2007 Results Only [facility] [address] [place] [address] Luis Enrique Brownlee MD [address] [place] [address] Social History Tobacco Use Types Packs/Day Years [...] Priority Date/Time Associated Diagnosis Comments CYTOPATHOLOGY Routine 09/08/2007 0:00 EDT documented in this encounter Results * CYTOPATHOLOGY (09/08/2007 0:00 EDT) Pathology Report: CYTOPATHOLOGY REPORT Reports generated via electronic interface contain original data; however they are lacking the format of the original report. Caution should be taken when reading/interpreti ng unformatted reports. Name: ? ROBIN YOUNG ? Accession #: ? [id number] : ? 1945 (Age: 61) ??F ?Collect Date: ? 09/08/2007 Location: ? [facility] ? Receive Date: ? 09/09/2007 Provider: ?LUIS ENRIQUE BROWNLEE MD Copy to: ? Specimen/Source: ?ThinPrep Pap Test, Cervix/Endocervix, processed on [employer] ThinPrep Imaging System, with manual evaluation Last Menstrual Period: ? Other: ? Additional clinical information: nl exam ? SPECIMEN ADEQUACY ? Satisfactory for Evaluation - assessment of transformation zone component not applicable ( e.g. atrophy, vaginal sample, hysterectomy) GENERAL CATEGORIZATION ? Negative for Intraepithelial Lesion or Malignancy ? Document reviewed and electronically signed by: ? OBDULIO Robbins(ASCP) ? Report Date: ??09/10/2007 13:17 End of Report [facility] 09/08/2007 09/09/2007 us Luis Enrique Brownlee MD PATHOLOGY ORDERABLES Final Resu lt [facility]TY [facility]ELASQUEZ [address] [place] [address] documented in this encounter Visit Diagnoses Not on filedocumented in this encounter
--- OUTSIDE RECORDS SUMMARY | 2024-05-13 12:49 | XMS_ITS | Encounter Summary ---
Author Organization [facility] [place] [address] Care Team Providers Care Electrotyper Name Role Phone Claudio Sigrid Guevara APRN Primary Care Provider [phone] Encounter Details Date Type Department Care Team (Late st Contact Info) Description 11/14/2017 Telephone General Surgery at [facility] [place] [id number] Norma Jhaveri MD Social History Tobacco Use Types Packs/Day Years Used Date Smoking Tobacco: Never Sex and Gender Information Value Date Recorded Sex Assigned at Not on file Gender Identity Not on file Sexual Orientation Not on file documented as of this encounter Miscellaneous Notes * Telephone Encounter - Norma Jhaveri MD - 11/14/2017 7:30 PM EDT Called patient with pathology report. She's doing well, no complaints. DIAGNOSIS A - Skin, right leg, excision: - Residual melanoma in situ, extensive. - In these slide sections, the deep and peripheral specimen edges are free. - Prior procedure site changes are identified. B - Skin, additional medial margin, excision: - Negative for residuum. - Incidental early ??seborrheic keratosis. C - Skin, additional lateral margin, excision: - Negative for residuum. - Incidental ??seborrheic keratosis, focally pigmented. No further treatment recommended. She will f/u with Dr. Nielsen. She understands the importance of ongoing dermatology care documented in this encounter Plan of Treatment Not on file documented as of this encounter Visit Diagnoses Not on filedocumented in this encounter Care Teams Electrotyper Relationship Specialty Start Date End Date Sigrid Snyder APRN PCP - General Family Medicine 10/25/17 11/26/18 documented as of this encounter
--- OUTSIDE RECORDS SUMMARY | 2024-05-13 12:49 | XMS_ITS | Encounter Summary ---
Author Organization [facility] Address [facility] [place] [address] Care Team Providers Care Electrician Station Assistant Name Role Phone Kristen Castaneda APRN Primary Care Provider [phone] Reason for Visit * Reason Comments Procedure Encounter Details Date Type Department Care Team (Latest Contact Info) Description 03/31/2021 10:00 AM EST Procedure visit Dermatology at [facility] [address] [place] [address] Elliot Luz MD [facility] [place] [address] 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 When it is time to remove the bandage, wash your hands, wet the area, and gently remove the dressing. Afterward perform the following daily wound care: 1. Clean the wound with mild soap and warm water, and gently pat dry. 2. Apply Vaseline, Aquaphor or another brand of plain petroleum jelly. Do NOT use peroxide or antibiotic ointment/cream (Neosporin or Bacitracin) on the wound. 3. Cover the wound with a new bandage, such as non-stick Telfa pad and paper tape, or a Band-Aid. 4. Repeat this regimen every day until your sutures are removed. A small amount of yellow drainage is part of the normal healing process. The wound is not considered healed until the drainage stops. It may take up to 3-4 weeks depending on the surgical site. Signsof infection include: increasing redness, drainage, swelling, tenderness, or pain. If you notice any of those symptoms, please contact the clinic. For bleeding or discomfort: If bleeding should occur, hold firm, constant pressure against the wound for 15- 20 minutes (with nopeeking). If bleeding continues, repeat for another 15-20 minutes. If that does not stop the bleeding, call the clinic or go to your local emergency department. For discomfort, you may take acetaminophen (Tylenol), according to package directions. For the first 48 hours, avoid aspirin and ibuprofen (Advil, Motrin), as they increase the risk of bleeding. After 48 hours, it is okay to switch to aspirin or ibuprofen as needed. Activity restrictions: It is important that you avoid strenuous and/or vigorous activities, heavy lifting (more than 5-10 pounds, the equivalent of 1 gallon of milk) and bending for a period of 3 weeks. Suture removal: The sutures should be removed in 12 days. Results: Please allow 1-2 weeks for the excision results to return. In accordance with the Century Cures Act Final Rule, the pathology results will be released to your [facility] patient portal at the same time they are available to the physician to review. Your physician or nurse will contact you within 3 business days of receiving the results; follow-up will be discussed at that time. If in 2 weeks, youhave not heard from us, please feel free to call the clinic to discuss your results. Contact information: On weekdays (8 am to 5 pm), please call the clinic at [phone]. After 5 pm, and on weekends and holidays, please call the hospital at [phone] and ask for the Piping Engineer Rn Referral. documented in this encounter Progress Notes * Elliot Luz MD - 03/31/2021 10:00 AM EST Images from the original note were not included. Provider: Arsh Luz M.D. ([id number]) : 1945 Cutaneous Surgical Procedure Note: Diagnosis: MIS ([id number]) Site: Left anterior shoulder A. Fusiform excision, width including margins = 3.5 cm (Width of Fusiform shape) B. Original lesion size = 3.5 x 2.5 cm C. Margins = 5 mm D. Intermediate repair, length = 10.5 cm Primary surgeon: Arsh Luz MD Nitroglycerin Separator Operator: Kelsea Alejandro CMA Time out performed for identification, prior to beginning surgery. Discussed the surgical treatment, expectations, scarring, need for follow-up. Informed consent obtained. Reviewed current medications, drug sensitivities and vital signs recorded. Sterile skin prep performed. Anesthesia: Local infiltration using a mixture of 1% lidocaine, 1/100,000 epinephrine. Total of 13ccs used. The excision was designed with clear-appearing margins, as stated above, in order to remove the lesion and any subclinical extension. Wood lamp examination to determine the lateral margins. The lesion was excised down to the level of panniculus. Wound margins were undermined in order to mobilize tissue for closure. Hemostasis was achieved. A layered closure was performed. Multiple buried absorbable sutures were placed to reappose deep fat.The epidermis and dermis were reapposed using 5 monofilament sutures. There were no complications; the patient tolerated the procedure well. Specimen was sent to Pathology.The wound was dressed. Post-procedure expectations (including discomfort management), wound care and activity restrictions were reviewed. Post-op instriction sheet reviewed and given to patient. Suture removal planned in 12 days. Pre-procedure photo: I am documenting this encounter acting as the scribe for and in the presence of Penelope Arguello CMA I performed the above scribed service and agree with the accuracy of the documentation in this encounter, MD Arsh Scott M.D. 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 ??Separate Pathology report to follow Elliot Luz MD PATHOLOGY/CYTOL OGY ORDERABLES [facility] [place] [address] * Surgical Pathology Report (03/31/2021 10:00 AM EST) Final Diagnosis [id number] ? Location: HDM The signing pathologist has (i) examined the relevant preparation(s) for the specimen(s) and (ii) rendered or confirmed the diagnosis(es). . ?Surgical Pathology DIAGNOSIS Left anterior shoulder, skin excision: - Extensive residual melanoma in situ, margins free, see discussion - ??Reparative changes consistent with previous operative site - Focal older scar Electronically signed by: ?Partha Bloom MD Verified: ??04/05/2021 11:50 ??Dermatopatholog ist, Bone & Soft Tissue Pathologist Performed at: ??-[facility] [place] Dept. [place], [place], [place] DISCUSSION The melanoma in situ extends to within 2-3 mm of the peripheral margins. SPECIMEN(S) SUBMITTED A - Left anterior shoulder, skin excision (1) CLINICAL INFORMATION 3.5 cm patch (please see previous path report [id number]). MIS SPECIMEN PROCESSING A - Labeled/Fixative: Patient demographics, formalin. Quantity/Size: ??Single, 8.8 x 2.8 x 0.8 cm. Tissue Description: Nonoriented pink-white, wrinkled elliptical skin excision with a central 3.3 x 2.0 cm irregularly bordered granular appearing brown macular lesion Sections/Processi ng: Inked, serially sectioned and airport representative sections submitted in 10 cassettes as follows: ?A1: ??tips ?A2: ??Normal-appearin g skin approaching centrally irregular macule ?A3-A9: ??Central, irregular brown macule ?A10: ??Normal-appearin g skin progressing away from the central brown macule ??shb 04/05/2021 11:50 AM EST [facility] SPECIMEN FROM SKIN / Unknown 03/31/2021 10:00 AM EST 03/31/2021 10:00 AM EST Elliot Luz MD PATHOLOGY/CYTOL OGY ORDERABLES [facility] [place] [phone] documented in this encounter Visit Diagnoses Diagnosis 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
--- OUTSIDE RECORDS SUMMARY | 2024-05-13 12:49 | XMS_ITS | Encounter Summary ---
Author Organization [facility] Address [facility] [place] [address] Care Team Providers Care Front Office Developer Name Role Phone Kristen Castaneda APRN Primary Care Provider [phone] Encounter Details Date Type Department Care Team (Latest Contact Info) Description 12/24/2022 8:07 PM EDT - 12/24/2022 11:59 PM EDT Hospital [place] [phone] Discharge Disposition: Home Social History Tobacco Use [...] (PRILOSEC) 20 mg Capsule, Delayed Release(E.C.) 08/07/2017 Dtsr-Omsg-WJD#1-Vit C-Sherwin-Bor [id number] mg Tablet Take by mouth. aspirin 81 mg Tablet, Delayed Release (E.C.) Take 81 mg by mouth daily. documented as of this encounter Plan of Treatment Not on file documented as of this encounter Procedures Procedure Name Priority Date/Time Associated Diagnosis Comments SURGICAL PATHOLOGY REPORT Routine 12/24/2022 11:15 AM EDT documented in this encounter Results * Surgical Pathology Report (12/24/2022 11:15 AM EDT) Final Diagnosis [id number] ? Location: OPW The signing pathologist has (i) examined the relevant preparation(s) for the specimen(s) and (ii) rendered or confirmed the diagnosis(es). . ?Surgical Pathology DIAGNOSIS Right shannon, skin shave biopsy: - ??Verrucous keratosis with subtle features of actinic keratosis Electronically signed by: ?Joaquin KAN, Marilyn Verified: ??01/01/2023 11:08 ??Dermatopathol ogist Performed at: ??-[facility] [place], [place] [address] Church Business Administrator: Meli Jacques MD, FCAP, ??CLIA Certificate: [id number] SPECIMEN(S) SUBMITTED A - R shannon, skin shave (1) Referring Identifier: ?(not provided) CLINICAL INFORMATION 5 mm keratotic nodule; question SCC SPECIMEN PROCESSING A - Labeled/Fixativ e: Right shannon, formalin. Quantity/Size: ??Single, 0.8 x 0.8 x 0.2 cm. Tissue Description: Shave of white skin with a 0.6 x 0.5 x 0.2 cm white papule. Sections/Proces sing: Inked, trisected and entirely submitted in 1 cassette labeled A1. ??sns 01/01/2023 11:08 AM EDT [facility] SPECIMEN FROM SKIN / Unknown 12/24/2022 11:15 AM EDT 12/24/2022 11:15 AM EDT Keyona Nielsen MD PATHOLOGY/CYTOLOGY O RDERABLES [facility] [place] [phone] [facility] [place] [address] documented in this encounter Visit Diagnoses Not on filedocumented in this encounter Care Teams Front Office Developer Relationship Specialty Start Date End Date [place] [address] PCP - General Family Medicine 03/31/21 documented as of this encounter
--- OUTSIDE RECORDS SUMMARY | 2024-05-13 12:49 | XMS_ITS | Clinical Summary ---
Author Organization [facility] Address [address] [place] [address] Care Team Providers Care Outsole Cementer Name Role Phone Silvio Willis MD Primary Care Provider [phone] Social History Tobacco Use Types Packs/Day Years Used Date Smoking Tobacco: Never Assessed Comments Unknown Sex and Gender Information Value Date Recorded Sex Assigned at Not on file Legal Sex Female 18:23 EST Gender Identity Not on file Sexual Orientation Not on file Plan of Treatment Health Maintenance Due Date Last Done Comments Hepatitis C Screen 1945 Fall Risk Screening 11/10/2011 RSV Immunization ( o r 60+ Years) (1 - 1-dose 75+ series) 2021 COVID-19 Vaccine (2023- season) 2023 Care Teams Outsole Cementer Relationship Specialty Start Date End Date Silvio Willis MD [address] [place] [id number] PCP - General 03/05/11
--- OUTSIDE RECORDS SUMMARY | 2024-05-13 12:49 | XMS_ITS | Encounter Summary ---
Author Organization [facility] Address [facility] [place] [address] Care Team Providers Care Forming Process Line Worker Name Role Phone Kristen Castaneda APRN Primary Care Provider [phone] Encounter Details Date Type Department Care Team (Latest Contact Info) Description 06/26/2022 9:52 PM EST - 06/26/2022 11:59 PM EST Hospital [place] [id number] Discharge Disposition: Home Social History Tobacco Use [...] (PRILOSEC) 20 mg Capsule, Delayed Release(E.C.) 08/07/2017 Lefs-Bzup-NYE#1-Vit C-Sherwin-Bor [id number] mg Tablet Take by mouth. aspirin 81 mg Tablet, Delayed Release (E.C.) Take 81 mg by mouth daily. documented as of this encounter Plan of Treatment Not on file documented as of this encounter Procedures Procedure Name Priority Date/Time Associated Diagnosis Comments SURGICAL PATHOLOGY REPORT Routine 06/26/2022 12:00 PM EST documented in this encounter Results * (ABNORMAL) Surgical Pathology Report (06/26/2022 12:00 PM EST) Final Diagnosis [id number] ? Location: [facility] The signing pathologist has (i) examined the relevant preparation(s) for the specimen(s) and (ii) rendered or confirmed the diagnosis(es). . ?Surgical Pathology DIAGNOSIS A - Right yazidi, skin shave biopsy: - Surface of ??basal cell carcinoma with superficial and nodular patterns, transected at the base B - Right upper lip, skin shave biopsy: - ??Basal cell carcinoma, superficial and nodular patterns, ?? present at the peripheral and deep specimen edges Electronically signed by: ?Jd KAN, Emily Verified: ??07/16/2022 10:57 ??Dermatopathol ogist Performed at: ??-[facility] Dept. of Pathology, [place] [address] Casing Wringer Operator: Meli Jacques MD, AP, ??CLIA Certificate: [id number] DISCUSSION THIS RESULT REQUIRES PHYSICIAN/A.P.P . FOLLOW UP ADDITIONAL STUDIES A. ??Multiple step-leveled sections were reviewed. SPECIMEN(S) SUBMITTED A - 1) R yazidi, skin shave biopsy (1) B - 2) R upper lip, skin shave biopsy (2) Referring Identifier: ?(not provided) CLINICAL INFORMATION A - 5 mm pearly nodule B - 3 mm pearly nodule SPECIMEN PROCESSING A - Labeled/Fixativ e: Right yazidi, formalin. Quantity/Size: ??Single, 0.3 x 0.3 cm. Tissue Description: Rodrigues-pink skin shave. Sections/Proces sing: Inked and submitted in toto in 1 cassette labeled A1. B - Labeled/Fixativ e: Right upper lip, formalin. Quantity/Size: ??Single, 0.7 x 0.6 cm. Tissue Description: Rodrigues-pink skin shave. Sections/Proces sing: Inked, trisected and entirely submitted in 1 cassette labeled B1. ??ajw(A) 07/16/2022 10:57 AM EDT [facility] SPECIMEN FROM SKIN / Unknown 06/26/2022 12:00 PM EST 06/26/2022 12:00 PM EST SPECIMEN FROM SKIN / Unknown 06/26/2022 12:00 PM EST 06/26/2022 12:00 PM EST Keyona Nielsen MD PATHOLOGY/CYTOLOGY O RDERABLES [facility] [place] [address] [place] [address] documented in this encounter Visit Diagnoses Not on filedocumented in this encounter Care Teams Forming Process Line Worker Relationship Specialty Start Date End Date Kristen Castaneda [place] [address] PCP - General Family Medicine 03/31/21 documented as of this encounter
--- OUTSIDE RECORDS SUMMARY | 2024-05-13 12:49 | XMS_ITS | Encounter Summary ---
Author Organization [facility] Address [facility] [place] [address] Care Team Providers Care Account Support Rep Name Role Phone Kristen Castaneda APRN Primary Care Provider [phone] Encounter Details Date Type Department Care Team (Latest Contact Info) Description 12/27/2021 10:12 PM EDT - 12/27/2021 11:59 PM EDT Hospital [place] [phone] Discharge Disposition: Home Social History Tobacco Use [...] (PRILOSEC) 20 mg Capsule, Delayed Release(E.C.) 08/07/2017 Txmu-Wxnx-CBT#1-Vit C-Sherwin-Bor [phone] mg Tablet Take by mouth. aspirin 81 mg Tablet, Delayed Release (E.C.) Take 81 mg by mouth daily. documented as of this encounter Plan of Treatment Not on file documented as of this encounter Procedures Procedure Name Priority Date/Time Associated Diagnosis Comments SURGICAL PATHOLOGY REPORT Routine 12/27/2021 9:00 AM EDT documented in this encounter Results * Surgical Pathology Report (12/27/2021 9:00 AM EDT) Final Diagnosis [id number] ? Location: [facility] The signing pathologist has (i) examined the relevant preparation(s) for the specimen(s) and (ii) rendered or confirmed the diagnosis(es). . ?Surgical Pathology DIAGNOSIS A - Right inferior shannon, skin shave biopsy: - ??Invasive squamous cell carcinoma, ??well differentiated, ??present at the deep specimen edge B - Right back, skin shave biopsy: - ??Basal cell carcinoma, nodular type, present at the peripheral and deep specimen edges Electronically signed by: ?Jami KAN, PhD, Jose Cruz Rolle Verified: ??01/01/2022 17:54 ??Dermatopathol ogist, Bone & Soft Tissue Pathologist Performed at: ??-[facility] Dept. of Pathology, [place], [place] SPECIMEN(S) SUBMITTED A - R inferior shannon, shave biopsy (1) B - R back, shave biopsy (1) Referring Identifier: ?(not provided) CLINICAL INFORMATION 1. 9 mm keratotic nodule. SCC. 2. 4 mm pearly nodule. BCC. SPECIMEN PROCESSING A - Labeled/Fixativ e: R inferior shannon, formalin. Quantity/Size: ??Single, 1.3 x 1.0 x 0.1 cm. Tissue Description: Bridges-white skin shave with a 0.9 x 0.8 cm ill-defined tam papule. Sections/Proces sing: Inked, serially sectioned and entirely submitted in 2 cassettes labeled A1-A2. B - Labeled/Fixativ e: R back, formalin. Quantity/Size: ??Single, 0.6 x 0.5 x 0.1 cm. Tissue Description: Bridges-white skin shave with a 0.4 x 0.4 cm wright papule. Sections/Proces sing: Inked, trisected and entirely submitted in 1 cassette labeled B1. ??jnr 01/01/2022 5:54 PM EDT [facility] SPECIMEN FROM SKIN / Unknown 12/27/2021 9:00 AM EDT 12/27/2021 9:00 AM EDT SPECIMEN FROM SKIN / Unknown 12/27/2021 9:00 AM EDT 12/27/2021 9:00 AM EDT Keyona Nielsen MD PATHOLOGY/CYTOLOGY O RDERABLES Performing Organization Address City/State/[facility] [place] [address] documented in this encounter Visit Diagnoses Not on filedocumented in this encounter Care Teams Account Support Rep Relationship Specialty Start Date End Date Kristen Castaneda APRN [facility] [place] [address] PCP - General Family Medicine 03/31/21 documented as of this encounter
--- OUTSIDE RECORDS SUMMARY | 2024-05-13 12:49 | XMS_ITS | Encounter Summary ---
Author Organization [facility] Address [address] [place] [address] Care Team Providers Care Elevator Troubleshooter Name Role Phone Unavailable Primary Care Provider Unavailabl e Encounter Details Date Type Department Care Team ([facility] st Contact Info) Description 03/01/2011 Results Only [facility] - [facility] ([facility] [place]) [address] [place], [place] [address] Clovis Ramos MD [address] [place] [id number] Social History Tobacco Use Types Packs/Day Years [...] Priority Date/Time Associated Diagnosis Comments SURGICAL PATHOLOGY Routine 03/01/2011 0:00 EDT documented in this encounter Results * SURGICAL PATHOLOGY (03/01/2011 0:00 EDT) Pathology Report: SURGICAL PATHOLOGY REPORT Reports generated via electronic interface contain original data; however they are lacking the format of the original report. Caution should be taken when reading/interpreti ng unformatted reports. Name: ? ROBIN YOUNG ? Accession #: ? [id number] ? : ? 1945 (Age: 65) ??F ? Collect Date: ? 03/01/2011 ? Location: ? [facility] ? Receive Date: ? 03/01/2011 ? Provider: CLOVIS RAMOS MD Copy to: ANTONIO LANE MD ? Final Pathologic Diagnosis: ? Esophagus, 35 cm, biopsy: 1. ??Benign pancreatic heterotopia. ?? 2. ??Squamous mucosa with reactive changes. 3. ??Foveolar, gastric type mucosa with chronic inflammation. 4. ??No intestinal metaplasia identified. Document reviewed and electronically signed by: YEVGENIY CHIRINOS MD Report ??Date: 03/06/2011 12:22 By the signature above, the attending physician certifies that he/she has personally conducted a gross and/or microscopic examination of the described specimens and rendered or confirmed the above diagnosis. Specimen(s) Received: ? Esophageal 35 cm bx Clinical History: ? GERD Gross Description: ? Received in formalin labelled Monet, Robin and esophageal 35 cm biopsy are five pink-wright irregular soft tissues ranging from 0.3 x 0.2 x 0.2 cm to 0.6 x 0.3 x 0.2 cm. ??Submitted in toto in (A1) and (A2). ??(Santosh Paniagua)/[facility] End of Report PETTY VELASQUEZ 03/01/2011 03/01/2011 17: 22 EDT us Clovis Ramos MD PATHOLOGY ORDERABLES Final Result PETTY VELASQUEZ [address] [place] [address] documented in this encounter Visit Diagnoses Not on filedocumented in this encounter
--- OUTSIDE RECORDS SUMMARY | 2024-05-13 12:49 | XMS_ITS | Encounter Summary ---
Author Organization [facility] Address [address] [place] [address] Care Team Providers Care Maple Syrup Maker Name Role Phone Unavailable Primary Care Provider Unavailabl e Encounter Details Date Type Department Care Team ([facility] st Contact Info) Description 04/27/2002 Results Only [facility] - Maple conversion [address] [place] [address] Luis Enrique Brownlee MD [address] [place] [address] Social History Tobacco Use Types [...] Priority Date/Time Associated Diagnosis Comments CYTOPATHOLOGY Routine 04/27/2002 0:00 EST documented in this encounter Results * CYTOPATHOLOGY (04/27/2002 0:00 EST) Pathology Report: CYTOPATHOLOGY REPORT Reports generated via electronic interface contain original data; however they are lacking the format of the original report. Caution should be taken when reading/interpreti ng unformatted reports. Name: ? ROBIN YOUNG ? Accession #: ? [id number] : ? 1945 (Age: 56) ??F ?Collect Date: ? 04/27/2002 Location: ? [facility] ? Receive Date: ? 04/28/2002 Provider: ?LUIS ENRIQUE BROWNLEE MD Copy to: ? Specimen/Source: ?Conventional Pap Test, Cervix/Endocervix Last Menstrual Period: ? 1995 Menstrual/Pregnanc y Status: ? Post Menopausal Previous Gynecologic Pathology: ? MAYA: 1984 ? SPECIMEN ADEQUACY ? Satisfactory for Evaluation - transformation zone component present GENERAL CATEGORIZATION ? Negative for Intraepithelial Lesion or Malignancy ? Document reviewed and electronically signed by: ? Loren Blevins, SCT(ASCP) ? Report Date: ??04/30/2002 12:32 End of Report PETTY VELASQUEZ 04/27/2002 04/28/2002 us Luis Enrique Brownlee MD PATHOLOGY ORDERABLES Final Resu lt PETTY VELASQUEZ [address] [place] [address] documented in this encounter Visit Diagnoses Not on filedocumented in this encounter
--- OUTSIDE RECORDS SUMMARY | 2024-05-13 12:49 | XMS_ITS | Encounter Summary ---
Author Organization [facility] Address [address] [place] [address] Care Team Providers Care Insurance Follow Up Rep Name Role Phone Unavailable Primary Care Provider Unavailabl e Encounter Details Date Type Department Care Team (Late st Contact Info) Description 02/05/2005 Results Only [facility] - Maple conversion [address] [place] [address] Luis Enrique Brownlee MD [address] [place] [address] Social History Tobacco Use Types [...] Priority Date/Time Associated Diagnosis Comments CYTOPATHOLOGY Routine 02/05/2005 0:00 EDT documented in this encounter Results * CYTOPATHOLOGY (02/05/2005 0:00 EDT) Pathology Report: CYTOPATHOLOGY REPORT Reports generated via electronic interface contain original data; however they are lacking the format of the original report. Caution should be taken when reading/interpreti ng unformatted reports. Name: ? ROBIN YOUNG ? Accession #: ? [id number] : ? 1945 (Age: 59) ??F ?Collect Date: ? 02/05/2005 Location: ? [facility] ? Receive Date: ? 02/06/2005 Provider: ?LUIS ENRIQUE BROWNLEE MD Copy to: ? Specimen/Source: ?ThinPrep Pap Test, Source Not Provided, processed on [employer] Imaging System, with manual evaluation Last Menstrual Period: ? 1995 ? SPECIMEN ADEQUACY ? Satisfactory for Evaluation - assessment of transformation zone component not applicable ( e.g. atrophy, vaginal sample, hysterectomy) GENERAL CATEGORIZATION ? Negative for Intraepithelial Lesion or Malignancy ? Document reviewed and electronically signed by: ? OBDULIO Dunn(ASCP) ? Report Date: ??02/12/2005 07:49 End of Report PETTY VELASQUEZ 02/05/2005 02/06/2005 us Luis Enrique Brownlee MD PATHOLOGY ORDERABLES Final Resu lt PETTY VELASQUEZ [address] [place] [address] documented in this encounter Visit Diagnoses Not on filedocumented in this encounter
--- OUTSIDE RECORDS SUMMARY | 2024-05-13 12:49 | XMS_ITS | Encounter Summary ---
Author Organization [facility] Address [address] [place] [address] Care Team Providers Care Senior Fire Protection Engineer Name Role Phone Unavailable Primary Care Provider Unavailabl e Encounter Details Date Type Department Care Team ([facility] st Contact Info) Description 03/31/2002 Results Only [facility] - Maple conversion [address] [place] [address] MD [address] [place] [phone] Social History Tobacco Use Types Packs/Day Years [...] Date/Time Associated Diagnosis Comments SURGICAL PATHOLOGY Routine 03/31/2002 0:00 EST documented in this encounter Results * SURGICAL PATHOLOGY (03/31/2002 0:00 EST) Pathology Report: SURGICAL PATHOLOGY REPORT Reports generated via electronic interface contain original data; however they are lacking the format of the original report. Caution should be taken when reading/interpreti ng unformatted reports. Name: ? ROBIN YOUNG ? Accession #: ? [id number] ? : ? 1945 (Age: 56) ??F ? Collect Date: ? 03/31/2002 ? Location: ? [facility] ? Receive Date: ? 04/03/2002 ? Provider: ANTONIO LANE MD Copy to: AGUS GOODWIN MD ? Final Pathologic Diagnosis: ? Skin of back, right lower, punch biopsy: - Vacuolar interface dermatitis. ??See microscopic and comment. Comment: ? The features are those of a superficial perivascular dermatitis with epidermal vacuolar interface alteration. ??The changes are most suggestive of a drug- or viral-related eruption. ??Although lupus erythematosus would also be included in the differential diagnosis (given the extension of the infiltrate to the level of the mid reticular dermis), other features characteristic of lupus erythematosus are not present. ??Correlation with the clinical history is recommended. ??(Dr. Chavez)/[facility] Microscopic Description: ? Sections consist of a punch biopsy of skin to the deep reticular dermis. Stratum corneum is composed of a normal layer of basketweave orthokeratin. ??The epidermis is generally of normal thickness and rete architecture. ??Along the dermal-epidermal junction, there is subtle vacuolar change associated with occasional degenerated keratinocytes. ??There is mild exocytosis of lymphocytes into the lower levels of the dermis. ??Within the dermis, there is a sparse to moderately dense perivascular and, to a lesser degree, interstitial inflammatory infiltrate. ??The infiltrate consists of lymphocytes, histiocytes, as well as rare eosinophils and neutrophils. ??The infiltrate extends to the mid reticular dermis in the vacinity of a pilosebaceous unit. ??The follicular epithelium also shows vacuolar change. ??There is mild vascular congestion and focal erythrocyte extravasation. ??Deeper sections show similar features. ??(Dr. Chavez)/[facility] Document reviewed and electronically signed by: Quin Chavez MD Report ??Date: 04/08/2002 15:40 By the signature above, the attending physician certifies that he/she has personally conducted a gross and/or microscopic examination of the described specimens and rendered or confirmed the above diagnosis. Specimen(s) Received: Punch biopsy of lesion R lower back Clinical History: ? Recurrent rash of skin; clinical diagnosis code: 706.2 ? Gross Description: ? Received in formalin labelled Monet and R lower back is a punch biopsy of skin that measures 0.2 cm in diameter x 0.2 cm in depth. The specimen is submitted intact in one cassette. ?? (Dr. Pimentel)/[facility] End of Report PETTY VELASQUEZ 03/31/2002 04/03/2002 10: [address] MD PATHOLOGY ORDERABLES Final Resul t PETTY VELASQUEZ [address] [place] [address] documented in this encounter Visit Diagnoses Not on filedocumented in this encounter
--- OUTSIDE RECORDS SUMMARY | 2024-05-13 12:49 | XMS_ITS | Encounter Summary ---
Author Organization [facility] [place] [address] Care Team Providers Care Roll Dough Divider Name Role Phone Claudio Sigrid Guevara APRN Primary Care Provider [phone] Reason for Visit * Auth/Cert Specialty Diagnoses / Procedures Referred By Contmolly t Referred To Contact Diagnoses RIGHT LEG MELANOMA Procedures PRO EXC SKIN MALIG 1.1-2CM TRUNK, ARM, LEG (MSURG) EXC MALIGNANT LESION, DORETHA 1.1 TO 2.0CM, TRUNK, ARM, LEG (WRVU 2.27) Referral ID Status Reason Start Date Expiration Date Visits Re quested Visits Authorized [id number] 1 1 Encounter Details Date Type Department Care Team (Latest Contact Info) Description 11/08/2017 12:37 PM EDT - 11/08/2017 2:40 PM EDT Hospital Encounter [place] [address] Norma Jhaveri MD Discharge Disposition: Home Social History Tobacco Use Types Packs/Day Years Used Date Smoking Tobacco: Never Sex and Gender Information Value Date Recorded Sex Assigned at Not on file Gender Identity Not on file Sexual Orientation Not on file documented as of this encounter Last Filed Vital Signs Vital Sign Reading Time Taken Comments Blood Pressure 126/64 11/08/2017 2:29 PM EDT Pulse - - Temperature - - Respiratory Rate 16 11/08/2017 2:29 PM EDT Oxygen Saturation 96% 11/08/2017 2:29 PM EDT Inhaled Oxygen Concentration - - Weight - - Height - - Body Mass Index - - documented in this encounter Discharge Instructions * Patient Instructions* Domi Tinoco - 11/08/2017 1:34 PM EDT [facility] Department of General Surgery Discharge Instructions CALL YOUR PHYSICIAN'S OFFICE IF: ??? You have a fever greater than 101 degrees Farenheit (38.3C) within one month of your surgery. ? ? You have diarrhea or vomiting for >24 hours, stop having bowel movements and/or passing flatus, have pain with urination. ??? You have worsening pain, not controlled with your pain medication. ??? You develop redness, swelling, or new drainage from your wound. Medications: [x] Pain Control [x] Non-narcotic pain medication - We recommend alternating with tylenol 650mg and ibuprofen 400-600mg every 6 hours as needed for pain (i.e.; tylenol at 12pm, ibuprofen 3pm, tylenol 6pm, ibuprofen 9pm). - Do not take more than 4,000mg (4g) of tylenol in 24 hours. [x] Other Medication(s) - The remainder of your medications are listed in the first section of the After Visit Summary. Driving Restrictions: - No driving if you are too sore from surgery to enter or exit your vehicle comfortably, or if you are too sore to easily check your blind spot. Shower: - It is ok to shower 48 hours after your operation. You can shower per usual routine and let soapy water run over your incision. Pat incision dry with a clean, dry towel. Do not submerge the wound under water (no swimming or soaking) for at least 6 weeks, or until approved by your surgeon. Diet: [x] You have been cleared to resume your regular diet - We recommend eating a regular healthy diet (i.e.; fresh fruits, vegetables and fiber-containing foods will assist in wound healing,) Activity: - It is normal to feel tired after surgery/hospitalization. Be as active as tolerated as this will improve recovery and prevent blood clots. - You should avoid any heavy lifting for 4 weeks after surgery. A galloon of milk is a good estimate of the maximum you should be lifting while your wounds heal. -We recommend taking several slow, short walks each day for the first two weeks, and gradually increase your distance. We recommend at least 4 times a day. Wound/Incision Care: Closure: Your skin incision(s) is closed with: [x] Dissolvable sutures and steri-strips - There are sutures below the skin and the steri-strips above. Allow the strips of tape to peel off over the coming weeks. Dressing: You have a dressing that can be removed 48 hours after your operation. After this replaceas needed for drainage. Infection: Observe for changes and alert the clinic if new/worsening redness or drainage. Things to avoid: Do not use creams, oils, or ointments on the wound. Keep wound open to air if it is not draining. Who to call? If you have concerns or questions: - During the day, it is best to call the [facility] to speak with the Surgery nurses. The number is [phone]. - During the night or weekends call the [facility] head stock operator at [phone] and ask to speak to the surgery resident container washer for general surgery. Please note: Your surgeon may not be Junior Staff Accountant, especially during the night or on weekends, so be ready to describe yourself and your surgery when you call. Follow up appointments: No future appointments. [] Follow-up appointment with General Surgery has already been scheduled. Please call the clinic [phone] to confirm or reschedule. [x] A request for a follow-up appointment has been made and you should receive information via phone/mail in the next week. If you do not hear anything, please call the clinic at [phone] to confirm or reschedule. If you need a prior authorization, please call the General Surgery Clinic nurses [phone] for prior authorizations assistance documented in this encounter Medications at Time of Discharge Medication Sig Dispensed Refills Start Date End Date atorvastatin (LIPITOR) 20 mg Tablet 10/18/2017 omeprazole (PRILOSEC) 20 mg Capsule, Delayed Release(E.C.) 08/07/2017 Nuqh-Xuty-VOK#1-Vit C-Sherwin-Bor [id number] mg Tablet Take by mouth. aspirin 81 mg Tablet, Delayed Release (E.C.) Take 81 mg by mouth daily. documented as of this encounter H&P Notes * Domi Tinoco - 11/08/2017 12:44 PM EDT Interval H&P No interval changes. No recent illness or changes in health. Will proceed with planned surgery - WLE RIGHT thigh melanotic lesion. DOMI TINOCO MD documented in this encounter Nursing Notes * Arthur Olea RN - 11/08/2017 2:44 PM EDT 1441 DC instructions given to Pt by Dr Jhaveri, reviewed at time of DC Pt had no questions at this time, DCd to home with documented in this encounter Miscellaneous Notes * Op Note - Norma Jhaveri MD - 11/08/2017 2:40 PM EDT [facility] Operative Note Patient Name: Dori Healy : [id number] MR#: [id number] Case Date: 11/08/2017 Surgeon: Surgeon(s) and Role: * Norma Jhaveri MD - Primary * Domi Tinoco MD - Resident-Surgeon Chief Preoperative diagnosis: RIGHT LEG MELANOMA Postoperative diagnosis: RIGHT LEG MELANOMA Procedure(s) (LRB): (MSURG) EXC MALIGNANT LESION, DORETHA 3.1 TO 4.0CM, TRUNK, ARM, LEG (WRVU 3.17) (Right) Findings: melanoma of right lower extremity Anesthesia: Anesthesia type not filed in the log. LOCAL Estimated Blood Loss: * No values recorded between 11/08/2017 1:47 PM and 11/08/2017 2:26 PM * Specimens removed during surgery: Order Name Source Comment Collection Info Order Time SPECIMEN TO PATHOLOGY Short stitch superior Long stitch lateral. melanoma right leg melanoma excision No 11/08/2017 2:03 PM Number of tissue samples (in container) 1 Time specimen removed from patient: 2:02 PM Biospecimen to store? No SPECIMEN TO PATHOLOGY RIGHT LEG MELANOMA additional medial margin stitch miko medial excision 11/08/2017 2:20 PM Number of tissue samples (in container) 1 Time specimen removed from patient: 2:13 PM SPECIMEN TO PATHOLOGY RIGHT LEG MELANOMA additional lateral margin stitch lateral excision 11/08/2017 2:20 PM Number of tissue samples (in container) 1 Time specimen removed from patient: 2:15 PM Drains: none Surgical Closure: Primary Closure - skin incision is completely closed without any wires, sherine, drains or other devices Disposition: Home Condition: doing well without problems (Please see the Surgical Encounter Summary for any Implant and Specimen details pertinent to this patient.) HPI/Surgical Indications: 71 year old woman with 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 On the biopsy specimen, there is notation of melanoma in situ at the peripheral margin, likely involving the adjacent unsampled pigmented nevus, and no involvement at the deep margin. I made recommendations for wide excision to clear the lesion. Given the current melanoma profile, there is no indication for sentinel lymph node biopsy. This could change if she was discovered to have residual disease that represented a thicker melanoma and we described this for her. There is no indication for staging workup (imaging). ?? Risks of the procedure were reviewed, including, but not limited to, bleeding, infection, inabilityto completely resect disease, recurrence in spite of resection, need for additional procedures, andwound dehiscence. We planned for excision under local anesthesia. Procedure Description: Patient was brought to the local procedure room. The patient was placed into a supine position. The right lower extremity (anterior thigh) site was verified. One cm margins were marked. The patient was prepped with ChloraPrep. It was allowed to dryfor >3 minutes. The patient was draped in standard fashion. We performed a time out; no problemswere identified. The site was injected with 50:50 mix of xylocaine and marcaine for local anesthesia. The lesion was resected en bloc, down to but not including the underlying fascia. Excellent hemostasis was maintained using electrocautery. The specimen was marked for orientation and passed off the field. We examined the 4.3 x 3 cm defect. Closure was planned along the axis with the least amount of tension, requiring resection of additional medial and lateral margins to remove standing cones and allowfor cosmetic closure. The 6.5 cm layered closure was accomplished in layers, including deep dermis (3-0 Vicryl) and cuticular (4-0 monocryl) closure. Sterile dressing was applied. Infection Bundle used? N/A Attestation: Case Date: 11/08/2017 I was present and I participated during the entire procedure (does not need to include opening and closing). Norma Jhaveri MD 11/08/2017 documented in this encounter Plan of Treatment Not on file documented as of this encounter Procedures Procedure Name Priority Date/Time Associated Diagnosis Comments SPECIMEN TO PATHOLOGY Routine 11/08/2017 2:20 PM EDT SPECIMEN TO PATHOLOGY Routine 11/08/2017 2:20 PM EDT SPECIMEN TO PATHOLOGY Routine 11/08/2017 2:03 PM EDT SURGICAL PATHOLOGY REPORT Routine 11/08/2017 2:02 PM EDT (MSURG) EXC MALIGNANT LESION, DORETHA 3.1 TO 4.0CM, TRUNK, ARM, LEG (WRVU 3.17) Yes 11/08/2017 1:31 PM EDT RIGHT LEG MELANOMA documented in this encounter Results * Specimen to Pathology (11/08/2017 2:20 PM EDT) AP Specimen 11/08/2017 2:20 PM EDT 11/08/2017 2:40 PM EDT Narrative [facility] - 11/08/2017 2:40 PM EDT Specimen requisition ordered. ??Separate Pathology report to follow Resulting Agency Comment Spec In Lab Norma Jhaveri MD PATHOLOGY/CYTOLOGY [place] [facility] [place] [address] * Specimen to Pathology (11/08/2017 2:20 PM EDT) AP Specimen 11/08/2017 2:20 PM EDT 11/08/2017 2:40 PM EDT Narrative [facility] - 11/08/2017 2:40 PM EDT Specimen requisition ordered. ??Separate Pathology report to follow Resulting Agency Comment Spec In Lab Norma Jhaveri MD PATHOLOGY/CYTOLOGY O [place] Performing Organization Address [facility] Co de Phone Number [facility] [place] [address] * Specimen to Pathology (11/08/2017 2:03 PM EDT) AP Specimen 11/08/2017 2:03 PM EDT 11/08/2017 2:40 PM EDT Narrative [facility] - 11/08/2017 2:40 PM EDT Specimen requisition ordered. ??Separate Pathology report to follow Resulting Agency Comment Spec In Lab Norma Jhaveri MD PATHOLOGY/CYTOLOGY Cheko SIMON Performing Organization Address [facility] Co de Phone Number [facility] [place] [address] * Surgical Pathology Report (11/08/2017 2:02 PM EDT) Final Diagnosis -[id number] ? Location: OR; ORMN; A The signing pathologist has (i) examined the relevant preparation(s) for the specimen(s) and (ii) rendered or confirmed the diagnosis(es). . ?Surgical Pathology DIAGNOSIS A - Skin, right leg, excision: [...] residuum. - Incidental ??seborrheic keratosis, focally pigmented. Electronically signed by: ??Marilyn Nuñez MD Verified: ??11/14/2017 ?Dermatopatholog ist Performed at: ??-[facility] Dept. of Pathology, [place], [place] ADDITIONAL STUDIES The prior biopsy report (-[id number]) and slides have been retrieved and examined. CLINICAL INFORMATION Specimen Submitted: A - Right leg melanoma. B - Additional medial margin stitch miko medial. C - Additional lateral margin stitch lateral. Clinical History and Diagnosis: Melanoma. SPECIMEN PROCESSING A ??- Labeled/Fixative: Right leg melanoma, fresh. Quantity/Size: Single, 3.2 x 2.7 cm excised to a depth of 2.7 cm. Tissue Description: Oriented ovoid excision of wright skin with a short suture designating superior and a long suture designating lateral. Eccentrically located is a 0.7 x 0.2 cm biopsy scar surrounded by an ill-defined 1.7 x 1.1 cm irregular brown patch. Sections/Processi ng: ?? The superior margin is inked black and the inferior margin is inked blue. ??The specimen is serially sectioned from lateral to medial. (1) lateral tip; (2-17) central sections from lateral to medial, (4-5, 6-7, 8-9, 10-11, 12-13, 14-15, 16-17) each slice bisected and submitted superficial to deep, brown patch in (4-12), (9) incomplete deep margin; (18) medial tip. ?(T18) B - ??Labeled/Fixativ e: Additional medial margin stitch zaragoza medial, fresh. Quantity/Size: Single, 2.0 x 1.5 x 0.4 cm. Tissue Description: Oriented triangular excision of wright skin with a suture designating the medial tip. Opposite the medial tip is a concave previous resection margin. The skin is wright with no identifiable lesions. Sections/Processi ng: The deep margin is inked black, the medial tip is inked blue. (1) en face superior margin; (2) en face inferior margin. (R2) C - ??Labeled/Fixativ e: Additional lateral margin stitch zaragoza lateral, fresh. Quantity/Size: Single, 2.5 x 1.5 x 0.4 cm . SPECIMEN PROCESSING Tissue Description: Oriented triangular excision of wright skin with a suture designating the lateral tip. Opposite the lateral tip is a concave previous resection margin. The skin is wright with no identifiable lesions. Sections/Processi ng: The deep margin is inked black, the lateral tip is inked blue. (1) en face superior margin; (2) en face inferior margin. (R2) ??atilio 11/14/2017 4:05 PM EDT [facility] SPECIMEN FROM SKIN / Unknown 11/08/2017 2:02 PM EDT 11/08/2017 2:02 PM EDT SPECIMEN FROM SKIN / Unknown 11/08/2017 2:02 PM EDT 11/08/2017 2:02 PM EDT SPECIMEN FROM SKIN / Unknown 11/08/2017 2:02 PM EDT 11/08/2017 2:02 PM EDT Norma Jhaveri MD PATHOLOGY/CYTOLOGY O RDERABLES [facility] [place] [address] documented in this encounter Visit Diagnoses Not on filedocumented in this encounter Administered Medications documented in this encounter Active and Recently Administered Medications Times are shown in EDT. PRN Medication Order 11/06/2017 11/07/2017 11/08/2017 acetaminophen (TYLENOL) tablet 650 mg 650 mg, Oral, EVERY 6 HOURS PRN, Starting on Sat11/08/17 at 1333, Until Sat11/08/17 at 1649, Pain, Maximum dose of acetaminophen is 4000 mg from all sources in 24 hours., Routine BUpivacaine (PF) (MARCAINE) 0.5 % (5 mg/mL) injection (CANCELED) ONCE PRN, Starting on Sat11/08/17 at 1402, Until Sat11/08/17 at 1635, Intra-Operative (Intra-Procedure), Routine 1346 (Given - Provid er: Norma Jhaveri MD)1402 (Canceled Entry - Provider: Norma Jhaveri MD) ibuprofen (ADVIL;MOTRIN) tablet 600 mg 600 mg, Oral, EVERY 6 HOURS PRN, Starting on Sat11/08/17 at 1333, Until Sat11/08/17 at 1649, Pain, Administer orally with milk or food to minimize GI irritation. Maximum dose of 3200 mg from all sources in 24 hours, Routine lidocaine (XYLOCAINE) 10 mg/mL (1 %) injection (CANCELED) ONCE PRN, Starting on Sat11/08/17 at 1346, Until Sat11/08/17 at 1635, Intra-Operative (Intra-Procedure), Routine 1346 (Given - Provid er: Norma Jhaveri MD) documented in this encounter Care Teams Roll Dough Divider Relationship Specialty Start Date End Date Sigrid Snyder APRN PCP - General Family Medicine 10/25/17 11/26/18 documented as of this encounter
--- OUTSIDE RECORDS SUMMARY | 2024-05-13 12:49 | XMS_ITS | Referral Summary ---
Author Organization [facility] Address [address] [place] [address] Care Team Providers Care Masonry Inspector Name Role Phone Silvio Willis MD Primary Care Provider [phone] Social History Tobacco Use Types Packs/Day Years Used Date Smoking Tobacco: Never Assessed Comments Unknown Sex and Gender Information Value Date Recorded Sex Assigned at Not on file Legal Sex Female 18:23 EST Gender Identity Not on file Sexual Orientation Not on file Plan of Treatment Not on file Care Teams Masonry Inspector Relationship Specialty Start Date End Date Silvio Willis MD [address] [place] [address] PCP - General 03/05/11
--- OUTSIDE RECORDS SUMMARY | 2024-05-13 12:49 | XMS_ITS | Encounter Summary ---
Author Organization [facility] Address [address] [place] [address] Care Team Providers Care Injection Molding Machine Setter Name Role Phone Unavailable Primary Care Provider Unavailabl e Encounter Details Date Type Department Care Team (Late st Contact Info) Description 06/29/1999 Results Only [facility] [address] [place] [address] MD [address] [place] [phone] Social History Tobacco Use Types Packs/Day Years [...] Priority Date/Time Associated Diagnosis Comments CYTOPATHOLOGY Routine 06/29/1999 15:44 EST documented in this encounter Results * CYTOPATHOLOGY (06/29/1999 15:44 EST) Pathology Report: CYTOPATHOLOGY REPORT Reports generated via electronic interface contain original data; however they are lacking the format of the original report. Caution should be taken when reading/interpreti ng unformatted reports. Name: ? ROBIN YOUNG ? Accession #: ? [id number] : ? 1945 (Age: 53) ??F ?Collect Date: ? 06/29/1999 Location: ?Receive Date: ? 06/29/1999 Provider: ? ANTONIO LANE MD Copy to: ?ANTONIO LANE MD ? CYTOLOGIC DIAGNOSIS: CYTOLOGIC DIAGNOSIS ? Urinary tract cytologic material, voided: ? Atypical cells present; see comment. ? [email or web address] Archived Tests - Final Diagnosis Text Field: Clinical History : ;Hematuria, UTI. Gross Description : 1 tube of Cytolyt ? COMMENT: COMMENT ? The specimen shows marked acute inflammation as well as scattered ? enlarged urothelial cells, a few of which have increased nuclear ? to cytoplasmic ratios. ??The atypical cells are most likely ? reactive, however clinical correlation is recommended with ? possible repeat cytology following clearing of inflammation. Document reviewed and electronically signed by: ? Conversion for AIDAN FRAZIER Report Date: ??06/30/1999 00:00 By the signature above, the attending physician certifies that he/she has personally conducted a gross and/or microscopic examination of the described specimens and rendered or confirmed the above diagnosis. Specimen Type: ? Urinary Tract Cytologic Material, Voided Clinical History: ? Gross Description: ? End of Report [facility] 06/29/1999 15:4 4 EST 06/29/1999 15:[address] MD PATHOLOGY ORDERABLES Final Resul t Performing Organization Address City/State/[facility] Co de Phone Number [facility] [address] [address] documented in this encounter Visit Diagnoses Not on filedocumented in this encounter
--- OUTSIDE RECORDS SUMMARY | 2024-05-13 12:49 | XMS_ITS | Encounter Summary ---
Author Organization [facility] Address [facility] [place] [address] Care Team Providers Care Supervisor Purification Name Role Phone Unknown Primary Care Provider Unavailabl e Encounter Details Date Type Department Care Team (Latest Contact Info) Description 06/24/2019 9:22 PM EST - 06/24/2019 11:59 PM EST Hospital Encounter Laboratory [facility] [place] [address] Discharge Disposition: Home Social History Tobacco Use [...] (PRILOSEC) 20 mg Capsule, Delayed Release(E.C.) 08/07/2017 Olgr-Pwur-PLF#1-Vit C-Sherwin-Bor [id number] mg Tablet Take by mouth. aspirin 81 mg Tablet, Delayed Release (E.C.) Take 81 mg by mouth daily. documented as of this encounter Plan of Treatment Not on file documented as of this encounter Procedures Procedure Name Priority Date/Time Associated Diagnosis Comments SURGICAL PATHOLOGY REPORT Routine 06/24/2019 1:10 PM EST documented in this encounter Results * Surgical Pathology Report (06/24/2019 1:10 PM EST) Final Diagnosis [id number] ? Location: OPW The signing pathologist has (i) examined the relevant preparation(s) for the specimen(s) and (ii) rendered or confirmed the diagnosis(es). . ?Surgical Pathology DIAGNOSIS A. Skin, right ear, shave biopsy: - ??Basal cell carcinoma, nodular pattern, transected Electronically signed by: ??Emily Miles MD Verified: ??06/26/2019 ?Dermatopathol ogist Performed at: ??-[facility]. of [place]ology, [place], [place] CLINICAL INFORMATION Specimen Submitted: A - R ear, shave Clinical History and Diagnosis: 6 mm pearly plaque; BCC Referring Identifier: ?(not provided) SPECIMEN PROCESSING A - Labeled/Fixativ e: Right ear, formalin. Quantity/Size: ??Single, 0.3 x 0.2 x 0.1 cm. Tissue Description: White-pink skin shave. Sections/Proces sing: Submitted en toto in 1 cassette labeled A1. ??MLL 06/26/2019 10:40 AM EST [facility] SPECIMEN FROM SKIN / Unknown 06/24/2019 1:10 PM EST 06/24/2019 1:10 PM EST Keyona Nielsen MD PATHOLOGY/CYTOLOGY O RDERAARVIND Performing Organization Address City/State/[facility] Co de Phone Number [facility] [place] [address] documented in this encounter Visit Diagnoses Not on filedocumented in this encounter Care Teams Supervisor Purification Relationship Specialty Start Date End Date Unknown None PCP - General 11/27/18 03/19/21 documented as of this encounter
--- OUTSIDE RECORDS SUMMARY | 2024-05-13 12:49 | XMS_ITS | Encounter Summary ---
Author Organization [facility] Address [facility] [place] [address] Care Team Providers Care Singer Songwriter Name Role Phone Kristen Castaneda APRN Primary Care Provider [phone] Reason for Visit * Reason Comments Procedure Encounter Details Date Type Department Care Team (Latest Contact Info) Description 03/31/2021 9:30 AM EST Clinical Support Dermatology at [facility] [address] [place] [address] Elliot Israel MD [facility] [place] [address] Pre-operative exam Social History Tobacco Use Types Packs/Day Years Used Date Smoking Tobacco: Never Sex and Gender Information Value Date Recorded Sex Assigned at Not on file Gender Identity Not on file Sexual Orientation Not on file documented as of this encounter Progress Notes * Elliot Israel MD - 03/31/2021 9:30 AM EST Pre Procedure Nurse Intake: Provider: ELLIOT ISRAEL MD Dori Healy is a 75 y.o. female presents to the clinic today for a procedure visit. Reviewed surgery expectations and after visit wound care instructions with patient. Patient verbalized understanding. Confirmed location with patient. Prepared patient for surgery. Kelsea Alejandro CMA documented in this encounter Plan of Treatment Not on file documented as of this encounter Visit Diagnoses Diagnosis Pre-operative exam Preoperative examination, unspecified documented in this encounter Care Teams Singer Songwriter Relationship Specialty Start Date End Date [place] [address] PCP - General Family Medicine 03/31/21 documented as of this encounter
--- OUTSIDE RECORDS SUMMARY | 2024-05-13 12:49 | XMS_ITS | Encounter Summary ---
Author Organization [facility] Address [address] [place] [address] Care Team Providers Care Cartridge Loader Name Role Phone Unavailable Primary Care Provider Unavailabl e Encounter Details Date Type Department Care Team ([facility] st Contact Info) Description 01/11/2011 Results Only [facility] Laboratory Services - [facility] ([facility] [address], [place] [id number] Antonio [address] MD [address] [place] [address] Social History Tobacco Use Types Packs/Day Years [...] Procedure Name Priority Date/Time Associated Diagnosis Comments PAP TEST- RESULT ONLY Routine 01/11/2011 0:00 EDT documented in this encounter Results * PAP TEST- RESULT ONLY (01/11/2011 0:00 EDT) Pathology Report: CYTOPATHOLOGY REPORT ? Reports generated via electronic interface contain original data; ? however they are lacking the format of the original report. ? Caution should be taken when reading/interpreti ng unformatted reports. ? Name: ? ROBIN YOUNG ? Accession #: ? [id number] ? : ? 1945 (Age: 65) ??F ?Collect Date: ? 01/11/2011 ? Location: ? [facility] ? Receive Date: ? 01/15/2011 ? Provider: ?ANTONIO LANE MD ? Copy to: ? Specimen/Source: ?Pap Test, Cervix/Endocervix, ThinPrep Imaging System ? with manual evaluation ? Last Menstrual Period: ? 1997 ? SPECIMEN ADEQUACY ? Satisfactory for Evaluation ? - assessment of transformation zone component not applicable ( e.g. atrophy, ? vaginal sample, hysterectomy) ? GENERAL CATEGORIZATION ? Negative for Intraepithelial Lesion or Malignancy ? Document reviewed and electronically signed by: ? Ilene Hadley, CT(ASCP) ? Report Date: ??01/19/2011 10:17 ? End of Report ? PETTY VELASQUEZ 01/11/2011 01/15/[address] MD PATHOLOGY ORDERABLES Final Resul t [facility] [address] [place] [address] documented in this encounter Visit Diagnoses Not on filedocumented in this encounter
--- OUTSIDE RECORDS SUMMARY | 2024-05-13 12:49 | XMS_ITS | Encounter Summary ---
Author Organization [facility] [place] [address] Care Team Providers Care Director Of Player Personnel Name Role Phone Sigrid Snyder APRN Primary Care Provider [phone] Reason for Visit * Auth/Cert Specialty Diagnoses / Procedures Referred By Weston t Referred To Contact Diagnoses RIGHT LEG MELANOMA Procedures PRO EXC SKIN MALIG 1.1-2CM TRUNK, ARM, LEG (MSURG) EXC MALIGNANT LESION, DORETHA 1.1 TO 2.0CM, TRUNK, ARM, LEG (WRVU 2.27) Referral ID Status Reason Start Date Expiration Date Visits Re quested Visits Authorized [id number] 1 1 Encounter Details Date Type Department Care Team (Late st Contact Info) Description 11/08/2017 1:00 PM EDT - 11/08/2017 2:00 PM EDT Surgery [place] [address] Norma Jhaveri MD (MSURG) EXC MALIGNANT LESION, DORETHA 3.1 TO 4.0CM, TRUNK, ARM, LEG (WRVU 3.17) Social History Tobacco Use Types Packs/Day Years Used Date Smoking Tobacco: Never Sex and Gender Information Value Date Recorded Sex Assigned at Not on file Gender Identity Not on file Sexual Orientation Not on file documented as of this encounter Discharge Instructions * Patient Instructions* Domi Tinoco - 11/08/2017 1:34 PM EDT [facility] Department of General Surgery Discharge Instructions CALL [...] day, it is best to call the [facility] to speak with the Surgery nurses. The number is [phone]. - During the night or weekends call the [facility] paper machine operator at [phone] and ask to speak to the surgery resident applications processor for general surgery. Please note: Your surgeon may not be Housekeeping Cleaner, especially during the night or on weekends, so be ready to describe yourself and your surgery when you call. Follow up appointments: No future appointments. [] Follow-up appointment with General Surgery has already been scheduled. Please call the clinic [phone] to confirm or reschedule. [x] A request for a follow-up appointment has been made and you should receive information via phone/mail in the next week. If you do not hear anything, please call the clinic at [phone] to confirm or reschedule. If you need a prior authorization, please call the General Surgery Clinic nurses [phone] for prior authorizations assistance documented in this encounter Medications at Time of Discharge Medication Sig Dispensed Refills Start Date End Date atorvastatin (LIPITOR) 20 mg Tablet 10/18/2017 omeprazole (PRILOSEC) 20 mg Capsule, Delayed Release(E.C.) 08/07/2017 Wsgg-Jjbr-TMD#1-Vit C-Sherwin-Bor [id number] mg Tablet Take by mouth. aspirin 81 [...] Jhaveri MD - 11/08/2017 2:40 PM EDT [facility] Operative Note Patient Name: oDri Healy : [id number] MR#: [id number] Case Date: 11/08/2017 Surgeon: Surgeon(s) and Role: [...] incision is completely closed without any wires, shernie, drains or other devices Disposition: Home Condition: [...] PM EDT 11/08/2017 2:40 PM EDT Narrative [facility] - 11/08/2017 2:40 PM EDT Specimen requisition ordered. ??Separate Pathology report to follow Resulting Agency Comment Spec In Lab Norma Jhaveri MD PATHOLOGY/CYTOLOGY [facility] Performing Organization Address [facility] Co de Phone Number [facility] [place] [address] * Specimen to Pathology (11/08/2017 2:20 PM EDT) AP Specimen 11/08/2017 2:20 PM EDT 11/08/2017 2:40 PM EDT Narrative [facility] - 11/08/2017 2:40 PM EDT Specimen requisition ordered. ??Separate Pathology report to follow Resulting Agency Comment Spec In Lab Norma Jhaveri MD PATHOLOGY/CYTOLOGY [facility] [place] Performing Organization Address [facility] Co de Phone Number [facility] [place] [address] * Specimen to Pathology (11/08/2017 2:03 PM EDT) AP Specimen 11/08/2017 2:03 PM EDT 11/08/2017 2:40 PM EDT Narrative [facility] - 11/08/2017 2:40 PM EDT Specimen requisition ordered. ??Separate Pathology report to follow Resulting Agency Comment Spec In Lab Norma Jhaveri MD PATHOLOGY/CYTOLOGY O [facility] [place] [address] * Surgical Pathology Report (11/08/2017 2:02 PM EDT) Final Diagnosis [id number] ? Location: OR; [facility]; A The signing [...] MD Verified: ??11/14/2017 ?Dermatopatholog ist Performed at: ??-[facility] Dept. of Pathology, [place], [place] ADDITIONAL STUDIES The prior biopsy report ([id number]) and slides have been retrieved and examined. [...] margin. (R2) ??atilio 11/14/2017 4:05 PM EDT [facility] SPECIMEN FROM SKIN / Unknown 11/08/2017 2:02 PM EDT 11/08/2017 2:02 PM EDT SPECIMEN FROM SKIN / Unknown 11/08/2017 2:02 PM EDT 11/08/2017 2:02 PM EDT SPECIMEN FROM SKIN / Unknown 11/08/2017 2:02 PM EDT 11/08/2017 2:02 PM EDT Norma Jhaveri MD PATHOLOGY/[place] [address] documented in this encounter Visit Diagnoses Not on filedocumented in this encounter Administered Medications Inactive Administered Medications - up to 3 most recent administrations Medication Order MAR Action Action Date Dose Rate Site BUpivacaine (PF) (MARCAINE) 0.5 % (5 mg/mL) injection ONCE PRN, Starting on Sat11/08/17 at 1402, Until Sat11/08/17 at 1635, Intra-Operative (Intra-Procedure), Routine Given 11/08/2017 1:46 PM EDT 17.5 mLs 19- Surgical Site lidocaine (XYLOCAINE) 10 mg/mL (1 %) injection ONCE PRN, Starting on Sat11/08/17 at 1346, Until Sat11/08/17 at 1635, Intra-Operative (Intra-Procedure), Routine Given 11/08/2017 1:46 PM EDT 17.5 mLs 19- Surgical Site documented in this encounter Active and Recently [...] MD) documented in this encounter Care Teams Director Of Player Personnel Relationship Specialty Start Date End Date Sigrid Snyder APRN PCP - General Family Medicine 10/25/17 11/26/18 documented as of this encounter
--- OUTSIDE RECORDS SUMMARY | 2024-05-13 12:49 | XMS_ITS | Encounter Summary ---
Author Organization [facility] Address [address] [place] [address] Care Team Providers Care Cyber Security Administrator Name Role Phone Unavailable Primary Care Provider Unavailabl e Encounter Details Date Type Department Care Team ([facility] st Contact Info) Description 01/18/2010 Results Only [facility] Laboratory Services - [facility] ([facility]) [address] [place] [address] MD [address] [place] [address] Social History Tobacco Use Types [...] Priority Date/Time Associated Diagnosis Comments CYTOPATHOLOGY Routine 01/18/2010 0:00 EDT documented in this encounter Results * CYTOPATHOLOGY (01/18/2010 0:00 EDT) Pathology Report: CYTOPATHOLOGY REPORT ? Reports generated via electronic interface contain original data; ? however they are lacking the format of the original report. ? Caution should be taken when reading/interpreti ng unformatted reports. ? Name: ? ROBIN YOUNG ? Accession #: ? [id number] ? : ? 1945 (Age: 64) ??F ?Collect Date: ? 01/18/2010 ? Location: ? [facility] ? Receive Date: ? 01/19/2010 ? Provider: ?ANTONIO LANE MD ? Copy to: ? Specimen/Source: ?Pap Test, Cervix/Endocervix, ThinPrep Imaging System ? with manual evaluation ? Last Menstrual Period: ? 2000 ? Other: ? HPVA - HPV testing requested if ASC-US on the current ThinPrep Pap test. ? SPECIMEN ADEQUACY ? Satisfactory for Evaluation ? - assessment of transformation zone component not applicable ( e.g. atrophy, ? vaginal sample, hysterectomy) ? GENERAL CATEGORIZATION ? Negative for Intraepithelial Lesion or Malignancy ? Document reviewed and electronically signed by: ? Ilene Butcher, CT(ASCP) ? Report Date: ??01/25/2010 10:23 ? End of Report ? PETTY VELASQUEZ 01/18/2010 01/19/[address] MD PATHOLOGY ORDERABLES Final Resul t [facility] [address] [place] [address] documented in this encounter Visit Diagnoses Not on filedocumented in this encounter
== END 2024-05-13 13:05 ==
LOC: DI 12:47
PROVIDERS: Visit Provider Nurse Practitioner Family
DX: R06.09 Other forms of dyspnea (principal)
CPT/HCPCS: 71046

== ENCOUNTER 2024-05-13 13:50 | Outpatient (REF) | payer MEDICARE, BC, SELFPAY ==
[2024-05-13 15:22] LABS: Abs Immature Grans 0.02 10^3/uL (0.0-0.06); Absolute Basophil Count 0.04 10^3/uL (0.0-0.2); Absolute Eosinophil Count 0.04 10^3/uL (0.0-0.7); Absolute Lymphocyte Count 1.79 10^3/uL (1.2-3.4); Absolute Monocyte Count 0.61 10^3/uL (0.1-0.8); Absolute Neutrophil Count 5.45 10^3/uL (1.2-6.7); Basophils % 0.5 %; Eosinophils % 0.5 %; HCT 44.3 % (36.0-46.0); HGB 14.6 g/dL (11.2-15.7); Immature Grans % 0.3 %; Lymphocytes % 22.5 %; MCH 31.2 pg (27.0-33.0); MCV 95 fL (80-95); MPV 8.6 fL (8.0-11.0); Monocytes % 7.7 %; Neutrophils % 68.5 %; Platelet Count 230 10^3/uL (130-400); RBC 4.68 10^6/uL (3.93-5.22); RDW 12.6 % (11.7-14.6); RDW-SD 43.8 fL; WBC 7.95 10^3/uL (4.4-10.8)
[2024-05-13 15:43] LABS: ALT 28 U/L (14-59); AST 29 U/L (15-37); Albumin 4.1 g/dL (3.4-5.0); Alkaline Phosphatase 87 U/L (46-116); Anion Gap 8.1 mmol/L (3-11); BUN 15 mg/dL (7-18); Bilirubin, Total 0.64 mg/dL (0.2-1.0); CO2 29.9 mmol/L (21.0-32.0); Calcium 9.7 mg/dL (8.5-10.1); Chloride 104 mmol/L (98-107); Estimated GFR 58.02 (mL/min/1.73m2); Glucose 106 mg/dL (74-106); Potassium 4.8 mmol/L (3.5-5.1); Sodium 142 mmol/L (136-145); Total Protein 8.3 g/dL (6.4-8.2)
== END 2024-05-13 13:51 | disposition home or self-care (01) ==
LOC: NCHCN 13:50
PROVIDERS: Visit Provider Nurse Practitioner Family
DX: R06.09 Other forms of dyspnea (principal)
CPT/HCPCS: 80053; 85025

== ENCOUNTER 2024-06-09 01:54 | Outpatient (CLI) | payer MEDICARE, BC, SELFPAY ==
--- NOTE | 2024-06-09 | DI.MAMMO_ITS ---
Exam(s) MAMMO SCREENING EXAM: MAMMO SCREENING CLINICAL HISTORY: Z12.31 Screening. TECHNIQUE: Bilateral full field digital CC and MLO mammographic images were obtained with 3D tomosyn thesis and utilizing computer aided detection (CAD). COMPARISON: Prior mammograms were reviewed. FINDINGS: There has been no significant change in the appearance and distribution of the fibroglandular tissue. No CAD designations. There are no new spiculated masses nor malignant appearing microcalcification groups. There is no significant architectural distortion nor skin thickening-retraction. IMPRESSION: No radiographic evidence of malignancy. BI-RADS Category 1 - Negative Breast Density - Category B - Scattered areas of fibroglandular density Breast density Category C or D implies that the patient has dense breast tissue. Dense breast tissue can make it harder to find cancer on a mammogram. Dense breast tissue is also associated with an incr eased risk of breast cancer. This information about the result of the mammogram report was provided to the patient to raise their awareness. Use this report when you speak with the patient about their risks for breast cancer, which includes their family history. At that time, you may recommend additional screening tests (Ultrasoun d or MRI) as these tests may add significant information. A negative radiographic report should not delay biopsy if a dominant or clinically suspicious mass is present. Up to ten percent of cancers are not identified on mammography. A negative report may reinforce clinical impression. Adenosis and dense breasts may obscure an underlying neoplasm. False positive reports average 6 to 10%. Patient will receive a letter notifying them of these results.
== END 2024-06-09 02:14 ==
LOC: DI 01:55
PROVIDERS: Visit Provider Nurse Practitioner Family
DX: Z12.31 Encounter for screening mammogram for malignant neoplasm of breast (principal); R92.323 Mammographic fibroglandular density, bilateral breasts
CPT/HCPCS: 77063; 77067